=== PATIENT | female | born 1950 | race Two or more races ===

== ENCOUNTER 2018-12-07 20:11 | Inpatient (IN) | payer MEDICARE, MEDICAID ==
--- NOTE | 2018-12-07 20:21 | ED Physician Chart ---
ED Chief Complaint/HPI - Patient Information Date Seen:: 12/07/18 Time Seen:: 20:16 Chief Complaint:: chest pain History of Present Illness:: this is a 68 yr old female who is concerned about her chest pain with congestion , sputum production, fever and chest pain. she had an x-ray done she had a chest x-ray earlier today with finding consistent with bilateral effusions. Allergies:: Allergies Allergy/AdvReac Type Severity Reaction Status Date / Time No Known Allergies Allergy Verified 12/07/18 20:14 Historian:: Patient, Medical Records Review:: Nurse's Note Reviewed, Transfer documents Reviewed ED Review of Systems - Review of Systems General/Constitutional: Fever, No chills, No weight loss, No weakness, No diaphoresis, No edema, No loss of appetite Skin: No skin lesions, No rash, No bruising Head: No headache, No light-headedness Eyes: No loss of vision, No pain, No diplopia ENT: No earache, No nasal drainage, No sore throat, No tinnitus Neck: No neck pain, No swelling, No thyromegaly, No stiffness, No mass noted Cardio Vascular: Chest pain, No palpitations, No PND, No orthopnea, No edema Pulmonary: No SOB, Cough, Sputum, No wheezing GI: Nausea, No vomiting, No diarrhea, No pain, No melena, No hematochezia, No constipation, No hematemesis G/U: No dysuria, No frequency, No hematuria Musculoskeletal: No bone or joint pain, No back pain, No muscle pain Endocrine: No polyuria, No polydipsia Psychiatric: No prior psych history, No depression, No anxiety, No suicidal ideation Hematopoietic: No bruising, No lymphadenopathy Allergic/Immuno: No urticaria, No angioedema Neurological: No syncope, No focal symptoms, No weakness, No paresthesia, No headache, No seizure, No dizziness, No confusion, No vertigo ED Past Medical History - Past Medical History Obtainable: Yes Past Medical History: HTN, DM, CHF, Asthma/COPD, Thyroid disorder, Other ( blindness, cirrhosis of the liver, ) Family History: None Social History: Non Smoker, No Alcohol, No Drug Use, Care Facility Surgical History: Hernia Family Medical History - Family Member Mother History Unknown: Yes ED Physical Exam - Physical Examination General/Constitutional: Awake, Well-developed, well-nourished, Alert, No distress, GCS 15, Non-toxic appearing, Ambulatory Head: Atraumatic Eyes: Lids, conjuctiva normal, PERRL, EOMI Other Eyes comments:: blindness Skin: Nl inspection, No rash, No skin lesions, No ecchymosis, Well hydrated, No lymphadenopathy ENMT: External ears, nose nl, Nasal exam nl, Lips, teeth, gums nl Neck: Nontender, Full ROM w/o pain, No JVD, No nuchal rigidity, No bruit, No mass, No stridor Respiratory: Nl effort/Exclusion, Clear to Auscultation, No Wheeze/Rhonchi/ Rales (bilateral rhonchi heard) Cardio Vascular: RRR, No murmur, gallop, rubs, NL S1 S2 GI: No tenderness/rebounding/guarding, No organomegaly, No hernia, Normal BS's, Nondistended, No mass/bruits, No McBurney tenderness : No CVA tenderness Extremities: No tenderness or effusion, Full ROM, normal strength in all extremities, No edema, Normal digits & nails Neuro/Psych: Alert/oriented, DTR's symmetric, Normal sensory exam, Normal motor strength, Judgement/insight normal, Mood normal, Normal gait, No focal deficits Misc: Normal back, No paraspinal tenderness ED Labs/Radiology/EKG Results - Lab Results Results: Laboratory Results - last 24 hr 12/07/18 12/07/18 12/07/18 20:37 20:37 20:37 WBC 5.5 RBC 2.19 L Hgb 7.8 L* Hct 23.3 L MCV 106.6 H MCH 35.8 H MCHC Differential 33.5 RDW 15.8 Plt Count 115 L MPV 10.4 Add Manual Diff YES Band Neutrophils % 0 Neutrophils (Manual) 71 Lymphocytes 15 L Monocytes 12 H Eosinophils 2 Basophils 0 PT 11.6 H INR 1.13 Sodium 140 Potassium Chloride 111 H Carbon Dioxide 27.4 Anion Gap 7.6 BUN 27 H Creatinine 1.2 Est GFR ( Amer) 57.1 Est GFR (Non-Af Amer) 47.2 BUN/Creatinine Ratio 22.5 Glucose 113 H Calcium 8.7 Total Bilirubin 0.9 AST 57 H ALT 39 Alkaline Phosphatase 185 H Troponin I Total Protein 5.8 L Albumin 2.5 L Globulin 3.3 Albumin/Globulin Ratio 0.8 L 12/07/18 20:37 WBC RBC Hgb Hct MCV MCH MCHC Differential RDW Plt Count MPV Add Manual Diff Band Neutrophils % Neutrophils (Manual) Lymphocytes Monocytes Eosinophils Basophils PT INR Sodium Potassium Chloride Carbon Dioxide Anion Gap BUN Creatinine Est GFR ( Amer) Est GFR (Non-Af Amer) BUN/Creatinine Ratio Glucose Calcium Total Bilirubin AST ALT Alkaline Phosphatase Troponin I 0.03 Total Protein Albumin Globulin Albumin/Globulin Ratio - EKG Interpretations EKG Time:: 20:59 Rate & Rhythm: rate 85, sinus Oakley: right axis ED Assessment - Assessment General Assessment: bilateral pleural effusions. ED Septic Shock - . Is Septic Shock (SBP<90, OR Lactate>4 mmol\L) present?: No ED Reassessment (Disposition) - Reassessment Reassessment Condition:: Unchanged - Diagnosis Diagnosis:: bilateral pleural effusions anemia urinary tract infection - Patient Disposition Discharge/Transfer:: Acute Care w/in this hosp Admitted to:: Telemetry Admitting Medical Physician:: Timoteo Christian Condition at Disposition:: Improved
[2018-12-07 20:52] LABS: HEMATOCRIT 23.3 % (41.0-60); MEAN CORPUSCULAR HEMOGLOBIN 35.8 pg (27.0-31.0); MEAN CORPUSCULAR HGB CONC 33.5 pg (28.0-36.0); MEAN PLATELET VOLUME 10.4 fl; PLATELET COUNT 115 Th/cmm (150-400); RED BLOOD COUNT 2.19 Mil/cmm (3.80-5.20); RED CELL DISTRIBUTION WIDTH 15.8 % (11.5-20.0); WHITE BLOOD COUNT 5.5 Th/cmm (4.8-10.8)
[2018-12-07 20:54] LABS: HEMOGLOBIN 7.8 gm/dL (12-16); INR 1.13 (0.5-1.4); MEAN CELL VOLUME 106.6 fl (81-100); PROTHROMBIN TIME (TEST) 11.6 SECONDS (9.5-11.5)
[2018-12-07 21:00] LABS: ALB/GLOB RATIO 0.8 (1.0-1.8); ALBUMIN 2.5 gm/dL (3.7-5.3); ANION GAP 7.6 (7.0-16.0); BILIRUBIN,TOTAL 0.9 mg/dL (0.3-1.0); CALCIUM SERUM 8.7 mg/dL (8.6-10.3); CARBON DIOXIDE 27.4 mEq/L (21.0-31.0); CREATININE - SERUM 1.2 mg/dL (0.6-1.2); GFR AFRICAN-AMERICAN 57.1 ml/min (>90); GFR NON AFRICAN-AMERICAN 47.2 ml/min; TOTAL PROTEIN,SERUM 5.8 gm/dL (6.0-8.3)
[2018-12-07 21:19] LABS: BAND NEUTROPHILE 0 % (0-10); BASOPHIL 0 % (0-3); EOSINOPHIL 2 % (0-5); LYMPHOCYTE 15 % (20-50); MONOCYTE 12 % (2-10); NEUTROPHILS 71 % (40-80)
[2018-12-07 21:35] LABS: URINE SOURCE CLEAN C
[2018-12-07 21:37] LABS: URINE BILIRUBIN NEGATIVE (NEGATIVE); URINE BLOOD TRACE (NEGATIVE); URINE GLUCOSE (UA) NEGATIVE (NEGATIVE); URINE KETONE NEGATIVE (NEGATIVE); URINE LEUKOCYTE ESTERASE SMALL (NEGATIVE); URINE MICROSCOPIC INDICATED? YES; URINE NITRATE NEGATIVE (NEGATIVE); URINE PROTEIN NEGATIVE (NEGATIVE); URINE UROBILINOGEN 0.2 E.U./dL (0.2 - 1.0)
[2018-12-07] MEDS ORDERED: Sodium Chloride 0.9% 1,000 ML IV ONE (21:37)
[2018-12-07] MEDS ORDERED: Dextrose 50% 50 mL Abboject IVP STA (21:38)
[2018-12-07] MEDS ORDERED: INSULIN HUMAN REGULAR 100 UNITS/ML UNIT SUBQ ONE (21:39)
[2018-12-07 21:47] LABS: URINE COLOR YELLOW
[2018-12-07 21:48] LABS: URINE CLARITY HAZY (CLEAR); URINE RBC 0-2 /hpf (0-5)
[2018-12-07 21:49] LABS: URINE BACTERIA MODERATE /hpf (NONE SEEN); URINE EPITHELIAL CELLS FEW /lpf (FEW)
[2018-12-07] MEDS ORDERED: Dextrose 50% 50 mL Abboject IVP ONE (21:52)
[2018-12-07] MEDS ORDERED: INSULIN HUMAN REGULAR 100 UNITS/ML UNIT ONE (21:54)
[2018-12-07 23:24] LABS: INF A SCREEN NEG FOR INF A; INF B SCREEN NEG FOR INF B
[2018-12-08] MEDS ORDERED: Magnesium Hydroxide (MOM) 30 mL UDC PO PRN (02:59)
[2018-12-08] MEDS ORDERED: Fleet Enema 135 mL RC PRN (02:59)
[2018-12-08 05:23] LABS: MEAN CORPUSCULAR HGB CONC 32.6 pg (28.0-36.0); MEAN PLATELET VOLUME 9.7 fl; PLATELET COUNT 116 Th/cmm (150-400); RED BLOOD COUNT 2.05 Mil/cmm (3.80-5.20); RED CELL DISTRIBUTION WIDTH 16.5 % (11.5-20.0); WHITE BLOOD COUNT 5.4 Th/cmm (4.8-10.8)
[2018-12-08 05:28] LABS: ALB/GLOB RATIO 0.8 (1.0-1.8); ALBUMIN 2.3 gm/dL (3.7-5.3); ALKALINE PHOSPHATASE 158 U/L (34-104); ANION GAP 7.9 (7.0-16.0); BILIRUBIN,TOTAL 0.9 mg/dL (0.3-1.0); BUN - UREA NITROGEN 22 mg/dL (7-25); CALCIUM SERUM 8.3 mg/dL (8.6-10.3); CARBON DIOXIDE 27.6 mEq/L (21.0-31.0); CHLORIDE 114 mEq/L (98-107); GFR AFRICAN-AMERICAN > 60.0 ml/min (>90); GFR NON AFRICAN-AMERICAN 58.3 ml/min; GLUCOSE 91 mg/dL (70-105); POTASSIUM SERUM 5.5 mEq/L (3.5-5.1); SGOT 50 U/L (13-39); SGPT/ALT 36 U/L (7-52); SODIUM SERUM 144 mEq/L (136-145); TOTAL PROTEIN,SERUM 5.3 gm/dL (6.0-8.3)
[2018-12-08 05:36] LABS: HEMOGLOBIN 7.2 gm/dL (12-16)
[2018-12-08] MEDS: Levothyroxine 0.1 Mg Tab PO SCH (06:33)
[2018-12-08] MEDS: Pantoprazole 40 mg EC Tab PO SCH (06:33)
[2018-12-08 06:38] LABS: EOSINOPHIL 4 % (0-5); LYMPHOCYTE 7 % (20-50); MONOCYTE 11 % (2-10); NEUTROPHILS 78 % (40-80); PLATELET ESTIMATE ADEQUATE (NORMAL)
[2018-12-08 06:39] LABS: MEAN CELL VOLUME 107.5 fl (81-100)
[2018-12-08] MEDS: INSULIN HUMAN REGULAR 100 UNITS/ML UNIT SUBQ SCH ×3 (07:18→18:16)
--- NOTE | 2018-12-08 09:30 | Diagnostic Imaging Report ---
CHEST X-RAY: AP view INDICATION: Pleural effusion COMPARISON: None FINDINGS: Findings of CHF are seen with bilateral effusions and infiltrates. Cardiomegaly is noted. Degenerative changes of the spine are noted. IMPRESSION: CHF with bilateral pleural effusions and infiltrates. Cardiomegaly and atherosclerotic vascular disease.
[2018-12-08] MEDS: Ferrous Sulfate 325 MG TAB PO SCH (09:54)
[2018-12-08] MEDS: Multivitamin w/ Minerals Tab PO SCH (09:55)
[2018-12-08] MEDS: Lactulose 10 Gm/15 mL 30mL UDC PO SCH ×5 (09:55→20:50)
[2018-12-08] MEDS: Aspirin 81mg Chewable Tab PO SCH (09:55)
[2018-12-08] MEDS: Polyvinyl Alcohol Ophth Soln 15 mL Bottle EACH EYE SCH ×2 (10:01→16:53)
[2018-12-08] MEDS: cefTRIAXone 1 GM in Sodium Chloride 0.9% 50 ML IV SCH ×2 (13:58→20:45)
[2018-12-08] MEDS ORDERED: DEXTROSE 5% IV SCH (21:00)
[2018-12-08] MEDS ORDERED: CEFUROXIME SODIUM IV SCH (21:00)
[2018-12-08] MEDS: INSULIN ASPART SLIDING SCALE 100 UNITS/ML UNIT SUBQ SCH (21:51)
[2018-12-08 23:52] LABS: RBC RETICULOCYTE COUNT 2.35 Mil/cmm
[2018-12-08 23:53] LABS: ABSOLUTE RETICULOCYTE 126.9 Th/cmm; HEMATOCRIT 25.1 % (37.0-47.0); RETICULOCYTES % COUNTED 5.4 % (0.5-1.5)
--- NOTE | 2018-12-09 01:06 | Infectious Disease Prog Note ---
Infectious Disease Subjective - Review of Systems Service Date: 12/08/18 Subjective: Patient had low hemoglobin, 7.2 and HCT 22, so One unit of blood transfusion given. No fever. Infectious Disease Objective - Results Result Diagrams: 12/08/18 17:45 12/08/18 05:05 Recent Labs: Laboratory Last Values WBC 5.4 Th/cmm (4.8-10.8) 12/08/18 05:05 RBC 2.05 Mil/cmm (3.80-5.20) L 12/08/18 05:05 Hgb 7.2 gm/dL (12-16) L* 12/08/18 05:05 Hct 25.1 % (37.0-47.0) L 12/08/18 17:45 MCV 107.5 fl (81-100) H 12/08/18 05:05 MCH 35.0 pg (27.0-31.0) H 12/08/18 05:05 MCHC Differential 32.6 pg (28.0-36.0) 12/08/18 05:05 RDW 16.5 % (11.5-20.0) 12/08/18 05:05 Plt Count 116 Th/cmm (150-400) L 12/08/18 05:05 MPV 9.7 fl 12/08/18 05:05 Add Manual Diff YES 12/08/18 05:05 Band Neutrophils % 0 % (0-10) 12/07/18 20:37 Neutrophils (Manual) 78 % (40-80) 12/08/18 05:05 Lymphocytes 7 % (20-50) L 12/08/18 05:05 Monocytes 11 % (2-10) H 12/08/18 05:05 Eosinophils 4 % (0-5) 12/08/18 05:05 Basophils 0 % (0-3) 12/07/18 20:37 Platelet Estimate ADEQUATE (NORMAL) 12/08/18 05:05 Macrocytosis 1+ 12/08/18 05:05 Total Retics Counted 5.4 % (0.5-1.5) H 12/08/18 17:45 Absolute Retic 126.9 Th/cmm 12/08/18 17:45 Corrected Retic Count 3.0 % (0.5-1.5) H 12/08/18 17:45 PT 11.6 SECONDS (9.5-11.5) H 12/07/18 20:37 INR 1.13 (0.5-1.4) 12/07/18 20:37 Sodium 144 mEq/L (136-145) 12/08/18 05:05 Potassium 5.5 mEq/L (3.5-5.1) H 12/08/18 05:05 Chloride 114 mEq/L (98-107) H 12/08/18 05:05 Carbon Dioxide 27.6 mEq/L (21.0-31.0) 12/08/18 05:05 Anion Gap 7.9 (7.0-16.0) 12/08/18 05:05 BUN 22 mg/dL (7-25) 12/08/18 05:05 Creatinine 1.0 mg/dL (0.6-1.2) 12/08/18 05:05 Est GFR ( Amer) > 60.0 ml/min (>90) 12/08/18 05:05 Est GFR (Non-Af Amer) 58.3 ml/min 12/08/18 05:05 BUN/Creatinine Ratio 22.0 12/08/18 05:05 Glucose 91 mg/dL (70-105) 12/08/18 05:05 POC Glucose 243 MG/DL (70 - 105) H 12/08/18 20:26 Calcium 8.3 mg/dL (8.6-10.3) L 12/08/18 05:05 Total Bilirubin 0.9 mg/dL (0.3-1.0) 12/08/18 05:05 AST 50 U/L (13-39) H 12/08/18 05:05 ALT 36 U/L (7-52) 12/08/18 05:05 Alkaline Phosphatase 158 U/L (34-104) H 12/08/18 05:05 Ammonia 68 umol/L (16-53) H 12/08/18 05:05 Troponin I 0.03 ng/mL (0.01-0.05) 12/07/18 20:37 B-Natriuretic Peptide 306.0 pg/mL (5.0-100.0) H 12/07/18 22:10 Total Protein 5.3 gm/dL (6.0-8.3) L 12/08/18 05:05 Albumin 2.3 gm/dL (3.7-5.3) L 12/08/18 05:05 Globulin 3.0 gm/dL 12/08/18 05:05 Albumin/Globulin Ratio 0.8 (1.0-1.8) L 12/08/18 05:05 LDL Cholesterol Direct 72 mg/dL (75-193) L 12/08/18 17:45 Urine Source CLEAN C 12/07/18 21:10 Urine Color YELLOW 12/07/18 21:10 Urine Clarity HAZY (CLEAR) 12/07/18 21:10 Urine pH 6.0 (4.6 - 8.0) 12/07/18 21:10 Ur Specific [place] 1.025 (1.005-1.030) 12/07/18 21:10 Urine Protein NEGATIVE mg/dL (NEGATIVE) 12/07/18 21:10 Urine Glucose (UA) NEGATIVE mg/dL (NEGATIVE) 12/07/18 21:10 Urine Ketones NEGATIVE mg/dL (NEGATIVE) 12/07/18 21:10 Urine Blood TRACE (NEGATIVE) 12/07/18 21:10 Urine Nitrate NEGATIVE (NEGATIVE) 12/07/18 21:10 Urine Bilirubin NEGATIVE (NEGATIVE) 12/07/18 21:10 Urine Urobilinogen 0.2 E.U./dL (0.2 - 1.0) 12/07/18 21:10 Ur Leukocyte Esterase SMALL (NEGATIVE) H 12/07/18 21:10 Urine RBC 0-2 /hpf (0-5) 12/07/18 21:10 Urine WBC 10-25 /hpf (0-5) H 12/07/18 21:10 Ur Epithelial Cells FEW /lpf (FEW) 12/07/18 21:10 Urine Bacteria MODERATE /hpf (NONE SEEN) H 12/07/18 21:10 Influenza A (Rapid) NEG FOR INF A 12/07/18 22:35 Influenza B (Rapid) NEG FOR INF B 12/07/18 22:35 Blood Type O POSITIVE 12/08/18 17:45 Antibody Screen NEGATIVE 12/08/18 17:45 Crossmatch See Detail 12/08/18 17:45 - Physical Exam Vitals and I&O: Vital Signs Temp 98.9 F 12/08/18 20:00 Pulse 70 12/08/18 20:00 Resp 19 12/08/18 20:00 BP 166/50 12/08/18 20:00 Pulse Ox 100 12/08/18 20:00 Intake & Output 12/08/18 12/08/18 12/09/18 06:59 18:59 06:59 Intake Total 50 Balance 50 Weight (lbs) 50.377 kg Intake: Intake, IV Amount 50 [id number] 1 gm In 50 Sodium Chloride 0.9% 50 ml @ 100 mls/hr IV Q12HR [facility] Rx#:[id number] Other: # Voids 2 # Bowel Movements 0 Stool Characteristics Soft Black Weight Source Bedscale Active Medications: Current Medications Acetaminophen (Tylenol) 650 mg PO Q4HR PRN PRN Reason: Pain or Fever >101 Stop: 02/06/19 02:58 Artificial Tears (Artificial Tears Ophth Soln) 1 drop EACH EYE BID [facility] Stop: 02/06/19 08:59 Last Admin: 12/08/18 16:53 Dose: 1 drop Aspirin (Aspirin Chewable) 81 mg PO DAILY [facility] Stop: 02/06/19 08:59 Last Admin: 12/08/18 09:55 Dose: 81 mg Bisacodyl (Dulcolax 10 Mg Supp) 10 mg RC DAILY PRN PRN Reason: Constipation Stop: 02/06/19 02:58 Brimonidine Tartrate (Alphagan 0.2% Ophth Soln) 1 drop RIGHT EYE BID [facility] Stop: 02/06/19 08:59 Last Admin: 12/08/18 16:53 Dose: 1 drop Docusate Sodium (Colace) 100 mg PO BID [facility] Stop: 02/06/19 08:59 Last Admin: 12/08/18 16:54 Dose: 100 mg Ferrous Sulfate (Iron) 325 mg PO DAILY [facility] Stop: 02/06/19 08:59 Last Admin: 12/08/18 09:54 Dose: 325 mg Folic Acid (Folate) 2 mg PO DAILY [facility] Stop: 02/06/19 08:59 Last Admin: 12/08/18 09:55 Dose: 2 mg Furosemide (Lasix) 20 mg PO DAILY [facility] Stop: 02/07/19 08:59 Glimepiride (Amaryl) 8 mg PO DAILY [facility] Stop: 02/06/19 08:59 Last Admin: 12/08/18 09:57 Dose: 8 mg Ceftriaxone Sodium 1 gm/ (Sodium Chloride) 50 mls @ 100 mls/hr IV Q12HR [facility] Stop: 02/06/19 13:59 Last Admin: 12/08/18 20:45 Dose: 100 mls/hr Insulin Aspart (Novolog Insulin Sliding Scale) 0 units SUBQ ACHS [facility]; Protocol Stop: 02/06/19 20:59 Last Admin: 12/08/18 21:51 Dose: Not Given Lactulose (Cephulac) 40 gm PO QID [facility] Stop: 02/06/19 08:59 Last Admin: 12/08/18 20:50 Dose: 40 gm Latanoprost (Xalatan 0.005% Oph Soln) 1 drop EACH EYE HS [facility] Stop: 02/06/19 20:59 Last Admin: 12/08/18 20:46 Dose: 1 drop Levothyroxine Sodium (Synthroid) 0.2 mg PO QDAC [facility] Stop: 02/06/19 07:29 Last Admin: 12/08/18 06:33 Dose: 0.2 mg Losartan Potassium (Cozaar) 25 mg PO DAILY [facility] Stop: 02/06/19 08:59 Last Admin: 12/08/18 09:54 Dose: 25 mg Magnesium Hydroxide (Milk Of Magnesia) 30 ml PO DAILY PRN PRN Reason: Constipation Stop: 02/06/19 02:58 Metoprolol Tartrate (Lopressor) 25 mg PO BID [facility] Stop: 02/06/19 08:59 Last Admin: 12/08/18 16:54 Dose: 25 mg Ondansetron HCl (Zofran Odt) 4 mg PO Q8H [facility] Stop: 02/06/19 02:59 Last Admin: 12/08/18 18:09 Dose: 4 mg Pantoprazole Sodium (Protonix) 40 mg PO QDAC [facility] Stop: 02/06/19 07:29 Last Admin: 12/08/18 06:33 Dose: 40 mg Rifaximin (Xifaxan) 550 mg PO BID [facility] Stop: 02/06/19 08:59 Last Admin: 12/08/18 16:55 Dose: 550 mg Sitagliptin Phosphate (Januvia) 100 mg PO QDAC [facility] Stop: 02/06/19 07:29 Last Admin: 12/08/18 07:19 Dose: Not Given Sodium Phosphate (Fleet Enema) 135 ml RC DAILY PRN PRN Reason: Constipation Stop: 02/06/19 02:58 Spironolactone (Aldactone) 50 mg PO BID [facility] Stop: 02/07/19 08:59 General: no acute distress, cachectic HEENT: atraumatic, normocephalic, PERRLA, EOMI Neck: supple, no thyromegaly Cardiovascular: S1S2, regular Lungs: clear to auscultation bilaterally, clear to percussion, crackles, other ( decreased breath sounds.) Abdomen: soft, bowel sounds, no tender, no distended, no mass Extremities: no cyanosis, no clubbing, no edema Neurological: awake, alert, oriented Skin: intact Infectious Disease Assmt/Plan - Assessment Assessment: 1. Anemia likely 2/2 cirrhosis. r/o gi bleed/ 2. Dehydration. 3. Liver cirrhosis. 4. Metabolic, hepatic encephalopathy. 5. Pneumonia, bilateral pleural effusion. 6. CHF. 7. Right eye blindness. - Plan Plan: Will continue same treatment. Consultation by Dr Colleen Christian, Dr bartlett appreciated. GI consult. Anemia w/u. One unit of PRBC transfused. stool for occult blood.
--- NOTE | 2018-12-09 02:32 | Consultation ---
DATE OF CONSULTATION: 12/08/2018 PATIENT OF: Dr. Catie Christian. HISTORY OF PRESENT ILLNESS: This is a 68-year-old female patient who was brought to the Emergency Room with shortness of breath. The patient was found to have congestive heart failure, bilateral pleural effusion, possible pneumonia, urinary tract infection and hence the patient is admitted. PAST MEDICAL HISTORY: Hypothyroid, ascites, cirrhosis of liver, diabetes mellitus type 2, diabetic CKD stage 2, insulin-dependent diabetes mellitus, right eye blindness, glaucoma, iron-deficiency anemia, thrombocytopenia, splenomegaly, ascites. FAMILY HISTORY: Unremarkable. SOCIAL HISTORY: No history of smoking, alcohol abuse at the present time. ALLERGIES: No known allergies. PHYSICAL EXAMINATION: VITAL SIGNS: Blood pressure 114/80, pulse 70, respirations 20, temperature 98. HEAD: Normocephalic. No lumps or bumps. EYES: Pupils equal, reactive to light. Fundi showing AV nicking, sclerae white, conjunctivae pink. NECK: Carotid 2+. Normal upstroke. JVD 10 cm above sternal angle. Thyroid not palpable. Lymph nodes not palpable. CHEST: Shows increased AP diameter. No kyphosis, scoliosis. LUNGS: Bilateral rales. Decreased breath sounds both the bases. HEART: PMI sixth intercostal space with lateral to midclavicular line. S1, S2, S3, S4, soft systolic murmur. ABDOMEN: Soft, slight ascites. EXTREMITIES: No pedal edema. CLINICAL IMPRESSION: Pneumonia, bilateral pleural effusion, mild congestive heart failure, hypothyroid, ascites, cirrhosis of liver, diabetes mellitus type 2, hyperkalemia, insulin-dependent diabetes mellitus, right eye blindness, iron-deficiency anemia, glaucoma, thrombocytopenia. PLAN: The patient to start on IV antibiotics, Lasix. Echocardiogram. JOB# [id number]
[2018-12-09 05:11] LABS: % LYMPHOCYTES 11.1 % (20.0-50.0); HEMATOCRIT 30.4 % (41.0-60); HEMOGLOBIN 10.1 gm/dL (12-16); MONOCYTE ABSOLUTE 0.6 Th/cmm (0.3-1.0)
[2018-12-09 05:31] LABS: % BASOPHILS 0.1 % (0.0-2.0); % EOSINOPHILS 1.1 % (0.0-5.0); % MONOCYTES 10.6 % (2.0-10.0); % NEUTROPHILS 77.1 % (40.0-80.0); EOSINOPHILE ABSOLUTE 0.1 Th/cmm (0.1-0.4); LYMPHOCYTE ABSOLUTE 0.7 Th/cmm (1.5-3.0); MEAN CELL VOLUME 98.3 fl (81-100); MEAN CORPUSCULAR HEMOGLOBIN 32.5 pg (27.0-31.0); MEAN CORPUSCULAR HGB CONC 33.1 pg (28.0-36.0); MEAN PLATELET VOLUME 10.5 fl; NEUTROPHILE ABSOLUTE 4.5 Th/cmm (1.8-8.0); PLATELET COUNT 122 Th/cmm (150-400); RED CELL DISTRIBUTION WIDTH 23.1 % (11.5-20.0); WHITE BLOOD COUNT 5.9 Th/cmm (4.8-10.8)
[2018-12-09 05:47] LABS: ALB/GLOB RATIO 0.8 (1.0-1.8); ALBUMIN 2.5 gm/dL (3.7-5.3); ALKALINE PHOSPHATASE 165 U/L (34-104); ANION GAP 8.1 (7.0-16.0); BILIRUBIN,TOTAL 1.1 mg/dL (0.3-1.0); BUN - UREA NITROGEN 24 mg/dL (7-25); CALCIUM SERUM 8.3 mg/dL (8.6-10.3); CARBON DIOXIDE 28.3 mEq/L (21.0-31.0); CHLORIDE 117 mEq/L (98-107); GFR AFRICAN-AMERICAN > 60.0 ml/min (>90); GFR NON AFRICAN-AMERICAN 58.3 ml/min; POTASSIUM SERUM 5.4 mEq/L (3.5-5.1); SGOT 59 U/L (13-39); SGPT/ALT 41 U/L (7-52); SODIUM SERUM 148 mEq/L (136-145); TOTAL PROTEIN,SERUM 5.8 gm/dL (6.0-8.3)
[2018-12-09 06:10] LABS: GLUCOSE 177 mg/dL (70-105)
[2018-12-09] MEDS: INSULIN ASPART SLIDING SCALE 100 UNITS/ML UNIT SUBQ SCH ×4 (06:40→21:40)
[2018-12-09] MEDS: Levothyroxine 0.1 Mg Tab PO SCH (06:44)
[2018-12-09] MEDS: Pantoprazole 40 mg EC Tab PO SCH (06:44)
[2018-12-09] MEDS: Lactulose 10 Gm/15 mL 30mL UDC PO SCH ×4 (09:58→21:02)
[2018-12-09] MEDS: Aspirin 81mg Chewable Tab PO SCH (10:01)
[2018-12-09] MEDS: Multivitamin w/ Minerals Tab PO SCH (10:01)
[2018-12-09] MEDS: Ferrous Sulfate 325 MG TAB PO SCH (10:04)
[2018-12-09] MEDS: cefTRIAXone 1 GM in Sodium Chloride 0.9% 50 ML IV SCH ×2 (10:06→21:07)
[2018-12-09] MEDS: Polyvinyl Alcohol Ophth Soln 15 mL Bottle EACH EYE SCH ×2 (10:06→18:42)
--- NOTE | 2018-12-09 10:06 | Diagnostic Imaging Report ---
CHEST X-RAY: AP view INDICATION: Shortness of breath COMPARISON: 12/08/2018 FINDINGS: Bilateral pleural effusions are seen with bilateral infiltrates. Cardiomegaly is noted. IMPRESSION: CHF with bilateral pleural effusions infiltrates overall no significant change.
--- NOTE | 2018-12-09 11:15 | History & Physical ---
ADMIT DATE: 12/07/2018 CHIEF COMPLAINT: ____, chest pain. HISTORY OF PRESENT ILLNESS: The patient is a 68-year-old female with a past medical history of cirrhosis secondary to alcohol abuse, hypertension, diabetes mellitus type 2, CHF, asthma, COPD, thyroid disorder, right eye blindness, anemia, hepatic encephalopathy, brought to the ER for congestion and sputum production. The patient also started to have fever and chest pain. Chest x-ray showed bilateral effusions. On initial evaluation, the patient's temperature was 99.3 degrees Fahrenheit, WBC count was 5500 and hemoglobin 7.8. So, the patient was admitted with a diagnosis of anemia, altered mental status, and bilateral pleural effusion. The patient also has had evidence of UTI. PAST MEDICAL HISTORY: Includes diabetes mellitus type 2, hypertension, right eye blindness, asthma, COPD, CHF, thyroid disorder, and alcoholic cirrhosis. FAMILY HISTORY: Not available. SOCIAL HISTORY: The patient lives at nursing facility. Currently no smoking, no alcohol, no drug use, but has past history of alcohol abuse. PAST SURGICAL HISTORY: Hernia repair. REVIEW OF SYSTEMS: GENERAL: The patient is a poor historian. The patient had a fever at nursing facility. No chills, no weight loss, no weakness, no diaphoresis, no edema, there is some loss of appetite. HEENT: No diplopia, no photophobia. Right eye blindness. PULMONARY: No cough, no shortness of breath, but some congestion. CARDIOVASCULAR: The patient has no chest pain or palpitation. GENITOURINARY: No dysuria, no hematuria. MUSCULOSKELETAL: No muscle pain, no joint pain. CENTRAL NERVOUS SYSTEM: The patient is mildly confused, but otherwise no focal weakness. PHYSICAL EXAMINATION: VITAL SIGNS: Shows temperature is 97.8 degrees Fahrenheit, pulse 85, respirations 16, blood pressure 180/64. GENERAL: The patient is comfortable, lying in the bed, cachectic, not in acute distress. HEENT: Head is normocephalic, atraumatic. Oral cavity moist, pink tongue. EYES: Pallor is present, no icterus. Pupils PERRLA, EOMI. NECK: Supple, no JVD, no carotid bruit. Trachea in midline. CHEST: Decreased breath sounds at the bases with some crackles. HEART: S1, S2 within normal limits. Regular rhythm. No murmur, no gallop. ABDOMEN: Soft, nontender, nondistended. Bowel sounds present. EXTREMITIES: No cyanosis, no clubbing, no edema. NEUROLOGIC: Alert, awake and arousable. LABORATORY DATA: Current lab shows WBC count is 5500, hemoglobin 7.8, hematocrit 23.3, platelets are 115,000, neutrophils 71%. Sodium 140, potassium 6.0, chloride is 111, bicarbonate is 27.4, BUN is 27, creatinine 1.2, glucose is 113, AST 57, ALT is 39, alkaline phosphatase 185, total bilirubin 0.9. Urinalysis shows negative nitrite, small leukoesterase, wbc 10-25, and moderate bacteria. Influenza A and B screen was done is negative. INR 1.13. IMPRESSION: 1. Severe anemia. 2. Bilateral pleural effusion may be secondary to congestive heart failure versus pneumonia. 3. Urinary tract infection. 4. Hyperkalemia. 5. Liver cirrhosis, alcoholic cirrhosis. 6. Dehydration. 7. Metabolic hepatic encephalopathy. 8. Congestive heart failure. 9. Pneumonia. 10. Right eye blindness. PLAN: We will continue her medications. Consult Dr. Matthew Christian for the suspected congestive heart failure and Dr. Gama for Pulmonary consultation for bilateral pleural effusion. Monitor CBC and BMP in the morning. Depending on that labs we will take further decision. Meanwhile, give IV fluid. Hypertension, we will give metoprolol 25 mg p.o. twice a day and Rocephin 1 g IV, given in the ER. JOB# [id number]
--- NOTE | 2018-12-09 11:17 | General Progress Note ---
Subjective - Review of Systems Service Date: 12/09/18 Subjective: Patient has less shortness of breath minimal cough Objective - Results Result Diagrams: 12/09/18 04:50 12/09/18 04:50 Recent Labs: Laboratory Last Values WBC 5.9 Th/cmm (4.8-10.8) 12/09/18 04:50 RBC 3.10 Mil/cmm (3.80-5.20) L 12/09/18 04:50 Hgb 10.1 gm/dL (12-16) L 12/09/18 04:50 Hct 30.4 % (41.0-60) L D 12/09/18 04:50 MCV 98.3 fl (81-100) 12/09/18 04:50 MCH 32.5 pg (27.0-31.0) H 12/09/18 04:50 MCHC Differential 33.1 pg (28.0-36.0) 12/09/18 04:50 RDW 23.1 % (11.5-20.0) H 12/09/18 04:50 Plt Count 122 Th/cmm (150-400) L 12/09/18 04:50 MPV 10.5 fl 12/09/18 04:50 Add Manual Diff YES 12/08/18 05:05 Neutrophils % 77.1 % (40.0-80.0) 12/09/18 04:50 Band Neutrophils % 0 % (0-10) 12/07/18 20:37 Lymphocytes % 11.1 % (20.0-50.0) L 12/09/18 04:50 Monocytes % 10.6 % (2.0-10.0) H 12/09/18 04:50 Eosinophils % 1.1 % (0.0-5.0) 12/09/18 04:50 Basophils % 0.1 % (0.0-2.0) 12/09/18 04:50 Neutrophils (Manual) 78 % (40-80) 12/08/18 05:05 Lymphocytes 7 % (20-50) L 12/08/18 05:05 Monocytes 11 % (2-10) H 12/08/18 05:05 Eosinophils 4 % (0-5) 12/08/18 05:05 Basophils 0 % (0-3) 12/07/18 20:37 Platelet Estimate ADEQUATE (NORMAL) 12/08/18 05:05 Macrocytosis 1+ 12/08/18 05:05 Total Retics Counted 5.4 % (0.5-1.5) H 12/08/18 17:45 Absolute Retic 126.9 Th/cmm 12/08/18 17:45 Corrected Retic Count 3.0 % (0.5-1.5) H 12/08/18 17:45 PT 11.6 SECONDS (9.5-11.5) H 12/07/18 20:37 INR 1.13 (0.5-1.4) 12/07/18 20:37 Sodium 148 mEq/L (136-145) H 12/09/18 04:50 Potassium 5.4 mEq/L (3.5-5.1) H 12/09/18 04:50 Chloride 117 mEq/L (98-107) H 12/09/18 04:50 Carbon Dioxide 28.3 mEq/L (21.0-31.0) 12/09/18 04:50 Anion Gap 8.1 (7.0-16.0) 12/09/18 04:50 BUN 24 mg/dL (7-25) 12/09/18 04:50 Creatinine 1.0 mg/dL (0.6-1.2) 12/09/18 04:50 Est GFR ( Amer) > 60.0 ml/min (>90) 12/09/18 04:50 Est GFR (Non-Af Amer) 58.3 ml/min 12/09/18 04:50 BUN/Creatinine Ratio 24.0 12/09/18 04:50 Glucose 177 mg/dL (70-105) H D 12/09/18 04:50 POC Glucose 137 MG/DL (70 - 105) H 12/09/18 06:31 Calcium 8.3 mg/dL (8.6-10.3) L 12/09/18 04:50 Total Bilirubin 1.1 mg/dL (0.3-1.0) H 12/09/18 04:50 AST 59 U/L (13-39) H 12/09/18 04:50 ALT 41 U/L (7-52) 12/09/18 04:50 Alkaline Phosphatase 165 U/L (34-104) H 12/09/18 04:50 Ammonia 68 umol/L (16-53) H 12/08/18 05:05 Troponin I 0.03 ng/mL (0.01-0.05) 12/07/18 20:37 B-Natriuretic Peptide 306.0 pg/mL (5.0-100.0) H 12/07/18 22:10 Total Protein 5.8 gm/dL (6.0-8.3) L 12/09/18 04:50 Albumin 2.5 gm/dL (3.7-5.3) L 12/09/18 04:50 Globulin 3.3 gm/dL 12/09/18 04:50 Albumin/Globulin Ratio 0.8 (1.0-1.8) L 12/09/18 04:50 LDL Cholesterol Direct 72 mg/dL (75-193) L 12/08/18 17:45 Urine Source CLEAN C 12/07/18 21:10 Urine Color YELLOW 12/07/18 21:10 Urine Clarity HAZY (CLEAR) 12/07/18 21:10 Urine pH 6.0 (4.6 - 8.0) 12/07/18 21:10 Ur Specific [place] 1.025 (1.005-1.030) 12/07/18 21:10 Urine Protein NEGATIVE mg/dL (NEGATIVE) 12/07/18 21:10 Urine Glucose (UA) NEGATIVE mg/dL (NEGATIVE) 12/07/18 21:10 Urine Ketones NEGATIVE mg/dL (NEGATIVE) 12/07/18 21:10 Urine Blood TRACE (NEGATIVE) 12/07/18 21:10 Urine Nitrate NEGATIVE (NEGATIVE) 12/07/18 21:10 Urine Bilirubin NEGATIVE (NEGATIVE) 12/07/18 21:10 Urine Urobilinogen 0.2 E.U./dL (0.2 - 1.0) 12/07/18 21:10 Ur Leukocyte Esterase SMALL (NEGATIVE) H 12/07/18 21:10 Urine RBC 0-2 /hpf (0-5) 12/07/18 21:10 Urine WBC 10-25 /hpf (0-5) H 12/07/18 21:10 Ur Epithelial Cells FEW /lpf (FEW) 12/07/18 21:10 Urine Bacteria MODERATE /hpf (NONE SEEN) H 12/07/18 21:10 Stool Occult Blood NEGATIVE (NEGATIVE) 12/09/18 10:45 Influenza A (Rapid) NEG FOR INF A 12/07/18 22:35 Influenza B (Rapid) NEG FOR INF B 12/07/18 22:35 Blood Type O POSITIVE 12/08/18 17:45 Antibody Screen NEGATIVE 12/08/18 17:45 Crossmatch See Detail 12/08/18 17:45 - Physical Exam Vitals and I&O: Vital Signs Temp 97.4 F 12/09/18 07:47 Pulse 76 12/09/18 10:00 Resp 16 12/09/18 08:17 BP 160/56 12/09/18 10:01 Pulse Ox 99 12/09/18 08:17 Intake & Output 12/08/18 12/09/18 12/09/18 18:59 06:59 18:59 Intake Total 50 80 Balance 50 80 Weight (lbs) 50.377 kg Intake: Intake, IV Amount 50 50 cefTRIAXone 1 gm In 50 50 Sodium Chloride 0.9% 50 ml @ 100 mls/hr IV Q12HR [facility] Rx#:[id number] Oral 30 Other: # Voids 2 # Bowel Movements 2 Stool Characteristics Soft Liquid Black Brown Weight Source Bedscale Active Medications: Current Medications Acetaminophen (Tylenol) 650 mg PO Q4HR PRN PRN Reason: Pain or Fever >101 Stop: 02/06/19 02:58 Artificial Tears (Artificial Tears Ophth Soln) 1 drop EACH EYE BID [facility] Stop: 02/06/19 08:59 Last Admin: 12/09/18 10:06 Dose: 1 drop Aspirin (Aspirin Chewable) 81 mg PO DAILY [facility] Stop: 02/06/19 08:59 Last Admin: 12/09/18 10:01 Dose: 81 mg Bisacodyl (Dulcolax 10 Mg Supp) 10 mg RC DAILY PRN PRN Reason: Constipation Stop: 02/06/19 02:58 Brimonidine Tartrate (Alphagan 0.2% Ophth Soln) 1 drop RIGHT EYE BID [facility] Stop: 02/06/19 08:59 Last Admin: 12/09/18 10:05 Dose: 1 drop Docusate Sodium (Colace) 100 mg PO BID [facility] Stop: 02/06/19 08:59 Last Admin: 12/09/18 10:07 Dose: Not Given Ferrous Sulfate (Iron) 325 mg PO DAILY [facility] Stop: 02/06/19 08:59 Last Admin: 12/09/18 10:04 Dose: 325 mg Folic Acid (Folate) 2 mg PO DAILY [facility] Stop: 02/06/19 08:59 Last Admin: 12/09/18 09:59 Dose: 2 mg Furosemide (Lasix) 20 mg PO DAILY [facility] Stop: 02/07/19 08:59 Last Admin: 12/09/18 10:01 Dose: 20 mg Glimepiride (Amaryl) 8 mg PO DAILY [facility] Stop: 02/06/19 08:59 Last Admin: 12/09/18 10:00 Dose: 8 mg Ceftriaxone Sodium 1 gm/ (Sodium Chloride) 50 mls @ 100 mls/hr IV Q12HR [facility] Stop: 02/06/19 13:59 Last Admin: 12/09/18 10:06 Dose: 100 mls/hr Insulin Aspart (Novolog Insulin Sliding Scale) 0 units SUBQ ACHS [facility]; Protocol Stop: 02/06/19 20:59 Last Admin: 12/09/18 06:40 Dose: Not Given Lactulose (Cephulac) 40 gm PO QID [facility] Stop: 02/06/19 08:59 Last Admin: 12/09/18 09:58 Dose: 40 gm Latanoprost (Xalatan 0.005% Oph Soln) 1 drop EACH EYE HS [facility] Stop: 02/06/19 20:59 Last Admin: 12/08/18 20:46 Dose: 1 drop Levothyroxine Sodium (Synthroid) 0.2 mg PO QDAC [facility] Stop: 02/06/19 07:29 Last Admin: 12/09/18 06:44 Dose: 0.2 mg Losartan Potassium (Cozaar) 25 mg PO DAILY [facility] Stop: 02/06/19 08:59 Last Admin: 12/09/18 09:58 Dose: 25 mg Magnesium Hydroxide (Milk Of Magnesia) 30 ml PO DAILY PRN PRN Reason: Constipation Stop: 02/06/19 02:58 Metoprolol Tartrate (Lopressor) 25 mg PO BID [facility] Stop: 02/06/19 08:59 Last Admin: 12/09/18 10:00 Dose: 25 mg Ondansetron HCl (Zofran Odt) 4 mg PO Q8H [facility] Stop: 02/06/19 02:59 Last Admin: 12/09/18 03:49 Dose: Not Given Pantoprazole Sodium (Protonix) 40 mg PO QDAC [facility] Stop: 02/06/19 07:29 Last Admin: 12/09/18 06:44 Dose: 40 mg Rifaximin (Xifaxan) 550 mg PO BID [facility] Stop: 02/06/19 08:59 Last Admin: 12/09/18 09:59 Dose: 550 mg Sitagliptin Phosphate (Januvia) 100 mg PO QDAC [facility] Stop: 02/06/19 07:29 Last Admin: 12/09/18 10:06 Dose: 100 mg Sodium Phosphate (Fleet Enema) 135 ml RC DAILY PRN PRN Reason: Constipation Stop: 02/06/19 02:58 Spironolactone (Aldactone) 50 mg PO BID [facility] Stop: 02/07/19 08:59 Last Admin: 12/09/18 10:00 Dose: 50 mg General: Alert HEENT: Mucous membr. moist/pink Neck: Supple, JVD (flat), +2 carotid pulse wo bruit Cardiovascular: Regular rate, Normal S1, Normal S2, Systolic murmurs Lungs: Other (basilar rales) Abdomen: Bowel sounds, Soft Extremities: Pulses (normal) Neurological: Normal gait, Cranial nerves 3-12 NL, Reflexes 2+ Skin: no Rash, no Breakdown, no Significant lesion, no Other Assessment/Plan - Assessment Assessment: Pneumonia Bilateral pleural effusion Mild congestive heart failure diastolic dysfunction and acute Hypothyroid Sinusitis Cirrhosis of liver Diabetes mellitus type 2 insulin-dependent Hyperkalemia Right eye blindness Glaucoma Iron deficiency anemia Thrombocytopenia - Plan Plan: Continue antibiotics monitor diabetes Echocardiogram for congestive heart failure
--- NOTE | 2018-12-09 14:13 | Diagnostic Imaging Report ---
Ultrasound abdomen HISTORY: Hepatoma, ascites COMPARISON: None Technique: Sonography of the abdomen was performed in multiple planes. FINDINGS: Exam is limited due to body habitus. The liver demonstrates mildly heterogeneous echotexture and measures 10.7 cm. A TIPS shunt is noted. Assessment of the TIPS shunt is limited however the visualized portions appear patent. No discrete focal liver lesions. Small calcification is seen along the gallbladder wall. Gallbladder wall is borderline prominent. The Common bile measures 4 mm. No pericholecystic fluid. Evaluation of pancreas is limited due to bowel gas. The right kidney measures 9.0 x 6.2 cm and demonstrating mild heterogeneous echogenicity. No focal lesions. The left kidney measures 8.9 x 5.3 cm demonstrating mild heterogeneous echogenicity no evidence of focal lesions. There is fullness of the left renal collecting system. The spleen measures 7.2 cm. Atherosclerosis is noted. Bilateral pleural effusions are noted. IMPRESSION: No gross ascites identified. Bilateral pleural effusions are noted. Heterogeneous liver which may reflect underlying hepatocellular disease. No discrete focal lesions identified by ultrasound. Consider further assessment CT given patient's history. There appears to be a TIPS shunt. The visualized portions appear grossly patent. Suspect small gallstones. Evaluation gallbladder was limited due to underdistention, consider additional views after fasting. Fullness left renal collecting system without perla hydronephrosis. Mild heterogeneity of the renal cortices. Inflammatory process or medical renal disease cannot be excluded.
--- NOTE | 2018-12-09 14:24 | Consultation ---
DATE OF CONSULTATION: 12/09/2018 REFERRING PHYSICIAN: Dr. Timoteo Christian. REASON FOR CONSULTATION: Anemia. HISTORY OF PRESENT ILLNESS: The patient is a 68-year-old female who was admitted with chest pain and found to have pleural effusion, pneumonia, and congestive heart failure. The patient was also found to have persistently low hemoglobin. Therefore, I was asked to evaluate. PAST MEDICAL HISTORY: Liver cirrhosis, COPD, CHF, diabetes type 2, hypertension, blindness and thyroid disorder. SOCIAL HISTORY: No smoking or drinking. SURGICAL HISTORY: Hernia. MEDICATIONS: Reviewed including iron, folic acid, aspirin, and diabetes medications. PHYSICAL EXAMINATION: GENERAL: The patient is awake, conversing, and not in distress. VITAL SIGNS: Blood pressure stable, afebrile. HEENT: Atraumatic. No peripheral lymphadenopathy. CHEST: Bilateral rhonchi. ABDOMEN: Soft. No clinical ascites. EXTREMITIES: No edema. NERVOUS SYSTEM: Blind, moves four extremities. LABORATORY DATA: From admission, hemoglobin 7.8 with MCV of 106, white count 5.5, platelets 115. Liver functions, elevated AST. Albumin 2.5. Chest x-ray showed CHF with bilateral pleural effusion/infiltrates, unchanged from before. Creatinine 1, bilirubin 1.1, AST 59. Coagulation: INR normal. Current CBC: Hemoglobin 10.1 after transfusion, platelets still 122. ASSESSMENT: 1. Macrocytic anemia on presentation, most consistent with anemia of liver disease. 2. 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 PLAN: I will obtain abdominal ultrasound and obtain comprehensive anemia workup including iron studies, B12, and folate level and stool occult blood. Urinalysis from admission showed no evidence of microscopic hematuria. The patient was transfused 1 unit of packed red blood cells on 12/08/2018. Thank you, Dr. Christian, for the opportunity to participate in the care of this interesting case with you. JOB# [id number]
--- NOTE | 2018-12-09 17:19 | Consultation ---
DATE OF CONSULTATION: 12/08/[address] Timoteo Christian. Thank you very much for this consultation. HISTORY OF PRESENT ILLNESS: This is a 68-year-old female who was referred here from [facility] because of some shortness of breath, less oxygen, was found to have bilateral effusion. The patient has history of liver cirrhosis, CHF and is on Aldactone. The patient appears to be comfortable, a poor historian. SOCIAL HISTORY: Denies smoking or drinking, drug use. REVIEW OF SYSTEMS: GENERAL: Some weakness and fatigue. CARDIOVASCULAR: No chest pain or palpation. RESPIRATORY: Shortness of breath with exertion. GASTROINTESTINAL: No nausea, vomiting. PHYSICAL EXAMINATION: GENERAL: Awake, alert, not in acute distress. VITAL SIGNS: Temperature is 98.8, pulse 75, respiration 19, blood pressure 142/62, saturation 100%. HEENT: Atraumatic, normocephalic. Pupils react to light and accommodation. Ears, nose and throat normal. NECK: Supple. No JVD. CHEST: There are decreased breath sounds at bases. HEART: Regular rate and rhythm. ABDOMEN: Soft. EXTREMITIES: No edema. LABORATORY DATA: WBC is 5.4, hemoglobin 7.2, hematocrit 22.0, platelets 116. Sodium 144, potassium 5.5, BUN 22, creatinine 1.0. The chest x-ray, bilateral effusion. IMPRESSION: This is a 68-year-old female with liver cirrhosis, most likely the effusion is related to the above. PLAN: We will increase Aldactone to twice a day and add low dose Lasix and I will follow up chest x-ray and labs. We will follow the patient with you. Thank you very much for this consultation. JOB# [id number]
--- NOTE | 2018-12-09 22:15 | Consultation ---
DATE OF CONSULTATION: 12/09/2018 INPATIENT GASTROINTESTINAL CONSULTATION CONSULTING PHYSICIAN: Dr. Timoteo Christian. REASON FOR CONSULTATION: Liver cirrhosis and anemia. HISTORY OF PRESENT ILLNESS: The patient is a 68-year-old female with a past medical history significant for cirrhosis of the liver, possibly due to previous alcoholism, congestive heart failure, chronic kidney disease, type 2 diabetes, COPD, who was admitted to the hospital with chest pain and congestion. The patient was complaining of chest pain and shortness of breath, which is why she was brought into the ER. Evaluation thus far has revealed fluid in both sides of her lungs and she has been admitted for diuresis. Additionally, the admission labs noted a hemoglobin of 7.7 and a GI consult was placed for anemia and management of her liver cirrhosis. The patient herself is a poor historian, is not able to tell me much history at all. I did speak to the patient's daughter who notes that she had an EGD and colonoscopy about a year and a half ago at [facility], although she does not remember the results. There is no overt GI bleed at the current time. There is no melena, hematochezia, or hematemesis. PAST MEDICAL HISTORY: Congestive heart failure, COPD, liver cirrhosis, type 2 diabetes, chronic kidney disease. PAST SURGICAL HISTORY: Unknown. FAMILY HISTORY: Noncontributory. SOCIAL HISTORY: The patient does report having drink alcohol in her past. She is not currently a drinker. Denies illicit drug use. ALLERGIES: There are no known drug allergies. REVIEW OF SYSTEMS: A 12-point review of systems was performed with the patient and is negative other than the pertinent positives mentioned in history of present illness. CURRENT MEDICATIONS: Include Tylenol, artificial tears, aspirin, Dulcolax, ceftriaxone, Colace, folic acid, furosemide, Amaryl, insulin, lactulose, Synthroid, Cozaar, milk of magnesia, Lopressor, Zofran, Protonix, rifaximin, Januvia, Aldactone. PHYSICAL EXAMINATION: VITAL SIGNS: Blood pressure is 160/56, pulse of 65 beats per minute, temperature 97.4, oxygenation 100%. GENERAL: The patient is sitting upright in bed. She is eating breakfast. She is alert, oriented x 1-2, no apparent distress. HEAD, EYES, EARS, NOSE AND THROAT: Normocephalic, atraumatic appearing head. The pupils are equal and reactive to light. Extraocular muscles appear to be intact. Moist mucous membranes. NECK: Supple. No obvious JVD or thyromegaly. CHEST: There are crackles heard bilaterally. CARDIOVASCULAR: S1, S2 are present, regular rate and rhythm. ABDOMEN: Soft. There is mild distention. There is no guarding or rebound or tympanic percussion. There is a mild fluid wave. EXTREMITIES: 1+ pitting edema is noted bilaterally. Pulses are not present. SKIN: There is no obvious jaundice. LABORATORY DATA: White blood cell count 5.4, hemoglobin 7.2 on admission, this morning was 10.1, platelet count is 122. INR was measured at 1.1, sodium 148, BUN 24, creatinine 1.0. AST 59, ALT 41, total bilirubin 1.1. Ammonia level was 68 on admission. Occult stool for blood is negative. IMAGING: There is no official imaging that has been done as of yet. IMPRESSION: This is a 68-year-old female with history of liver cirrhosis, possibly due to alcoholism in the past, decompensated by hepatic encephalopathy and maybe ascites, chronic kidney disease, type 2 diabetes, congestive heart failure, COPD, admitted to the hospital with pulmonary congestion and anemia. 1. Anemia. 2. Congestive heart failure and chronic obstructive pulmonary disease exacerbation. 3. Liver cirrhosis, possibly alcoholism decompensated by ascites and hepatic encephalopathy. 4. Chronic kidney disease. DISCUSSION: In terms of the patient's anemia, I think this is a multifactorial process. Her MCV is elevated. Thus, I do not think she is losing blood actively from the GI tract and there is no melena or hematochezia history. She did have a recent EGD and colonoscopy within the past year and a half at [facility] and we will try to obtain the record. I do not feel that repeating endoscopy now is necessary unless there are overt GI bleeding, given she had this done recently and the stool occult blood is negative. We will get an abdominal ultrasound to examine the liver to look for any evidence of hepatoma as well as look for any evidence of ascites. Otherwise, she is already on lactulose and rifaximin to help with her hepatic encephalopathy and she is on diuresis. RECOMMENDATIONS: 1. Endoscopy is not planned given the above discussion. 2. Trend hemoglobin, transfuse to keep above 7. 3. Agree with lactulose and rifaximin. 4. Agree with diuresis. 5. We will order an abdominal ultrasound. 6. Paracentesis as needed if she becomes distended. 7. Avoid alcohol. Thank you for allowing me to participate in her care. Please call with any further questions. JOB# [id number]
--- NOTE | 2018-12-10 00:36 | Infectious Disease Prog Note ---
Infectious Disease Subjective - Review of Systems Service Date: 12/09/18 Subjective: Patient had low hemoglobin, 7.2 and HCT 22, so One unit of blood transfusion given. No fever. Infectious Disease Objective - Results Result Diagrams: 12/09/18 04:50 12/09/18 04:50 Recent Labs: Laboratory Last Values WBC 5.9 Th/cmm (4.8-10.8) 12/09/18 04:50 RBC 3.10 Mil/cmm (3.80-5.20) L 12/09/18 04:50 Hgb 10.1 gm/dL (12-16) L 12/09/18 04:50 Hct 30.4 % (41.0-60) L D 12/09/18 04:50 MCV 98.3 fl (81-100) 12/09/18 04:50 MCH 32.5 pg (27.0-31.0) H 12/09/18 04:50 MCHC Differential 33.1 pg (28.0-36.0) 12/09/18 04:50 RDW 23.1 % (11.5-20.0) H 12/09/18 04:50 Plt Count 122 Th/cmm (150-400) L 12/09/18 04:50 MPV 10.5 fl 12/09/18 04:50 Add Manual Diff YES 12/08/18 05:05 Neutrophils % 77.1 % (40.0-80.0) 12/09/18 04:50 Band Neutrophils % 0 % (0-10) 12/07/18 20:37 Lymphocytes % 11.1 % (20.0-50.0) L 12/09/18 04:50 Monocytes % 10.6 % (2.0-10.0) H 12/09/18 04:50 Eosinophils % 1.1 % (0.0-5.0) 12/09/18 04:50 Basophils % 0.1 % (0.0-2.0) 12/09/18 04:50 Neutrophils (Manual) 78 % (40-80) 12/08/18 05:05 Lymphocytes 7 % (20-50) L 12/08/18 05:05 Monocytes 11 % (2-10) H 12/08/18 05:05 Eosinophils 4 % (0-5) 12/08/18 05:05 Basophils 0 % (0-3) 12/07/18 20:37 Platelet Estimate ADEQUATE (NORMAL) 12/08/18 05:05 Macrocytosis 1+ 12/08/18 05:05 Total Retics Counted 5.4 % (0.5-1.5) H 12/08/18 17:45 Absolute Retic 126.9 Th/cmm 12/08/18 17:45 Corrected Retic Count 3.0 % (0.5-1.5) H 12/08/18 17:45 PT 11.6 SECONDS (9.5-11.5) H 12/07/18 20:37 INR 1.13 (0.5-1.4) 12/07/18 20:37 Sodium 148 mEq/L (136-145) H 12/09/18 04:50 Potassium 5.4 mEq/L (3.5-5.1) H 12/09/18 04:50 Chloride 117 mEq/L (98-107) H 12/09/18 04:50 Carbon Dioxide 28.3 mEq/L (21.0-31.0) 12/09/18 04:50 Anion Gap 8.1 (7.0-16.0) 12/09/18 04:50 BUN 24 mg/dL (7-25) 12/09/18 04:50 Creatinine 1.0 mg/dL (0.6-1.2) 12/09/18 04:50 Est GFR ( Amer) > 60.0 ml/min (>90) 12/09/18 04:50 Est GFR (Non-Af Amer) 58.3 ml/min 12/09/18 04:50 BUN/Creatinine Ratio 24.0 12/09/18 04:50 Glucose 177 mg/dL (70-105) H D 12/09/18 04:50 POC Glucose 208 MG/DL (70 - 105) H 12/09/18 20:42 Calcium 8.3 mg/dL (8.6-10.3) L 12/09/18 04:50 Total Bilirubin 1.1 mg/dL (0.3-1.0) H 12/09/18 04:50 AST 59 U/L (13-39) H 12/09/18 04:50 ALT 41 U/L (7-52) 12/09/18 04:50 Alkaline Phosphatase 165 U/L (34-104) H 12/09/18 04:50 Ammonia 68 umol/L (16-53) H 12/08/18 05:05 Troponin I 0.03 ng/mL (0.01-0.05) 12/07/18 20:37 B-Natriuretic Peptide 306.0 pg/mL (5.0-100.0) H 12/07/18 22:10 Total Protein 5.8 gm/dL (6.0-8.3) L 12/09/18 04:50 Albumin 2.5 gm/dL (3.7-5.3) L 12/09/18 04:50 Globulin 3.3 gm/dL 12/09/18 04:50 Albumin/Globulin Ratio 0.8 (1.0-1.8) L 12/09/18 04:50 LDL Cholesterol Direct 72 mg/dL (75-193) L 12/08/18 17:45 Urine Source CLEAN C 12/07/18 21:10 Urine Color YELLOW 12/07/18 21:10 Urine Clarity HAZY (CLEAR) 12/07/18 21:10 Urine pH 6.0 (4.6 - 8.0) 12/07/18 21:10 Ur Specific [place] 1.025 (1.005-1.030) 12/07/18 21:10 Urine Protein NEGATIVE mg/dL (NEGATIVE) 12/07/18 21:10 Urine Glucose (UA) NEGATIVE mg/dL (NEGATIVE) 12/07/18 21:10 Urine Ketones NEGATIVE mg/dL (NEGATIVE) 12/07/18 21:10 Urine Blood TRACE (NEGATIVE) 12/07/18 21:10 Urine Nitrate NEGATIVE (NEGATIVE) 12/07/18 21:10 Urine Bilirubin NEGATIVE (NEGATIVE) 12/07/18 21:10 Urine Urobilinogen 0.2 E.U./dL (0.2 - 1.0) 12/07/18 21:10 Ur Leukocyte Esterase SMALL (NEGATIVE) H 12/07/18 21:10 Urine RBC 0-2 /hpf (0-5) 12/07/18 21:10 Urine WBC 10-25 /hpf (0-5) H 12/07/18 21:10 Ur Epithelial Cells FEW /lpf (FEW) 12/07/18 21:10 Urine Bacteria MODERATE /hpf (NONE SEEN) H 12/07/18 21:10 Stool Occult Blood NEGATIVE (NEGATIVE) 12/09/18 10:45 Influenza A (Rapid) NEG FOR INF A 12/07/18 22:35 Influenza B (Rapid) NEG FOR INF B 12/07/18 22:35 Blood Type O POSITIVE 12/08/18 17:45 Antibody Screen NEGATIVE 12/08/18 17:45 Crossmatch See Detail 12/08/18 17:45 - Physical Exam Vitals and I&O: Vital Signs Temp 97.2 F 12/10/18 00:00 Pulse 67 12/10/18 00:00 Resp 19 12/10/18 00:00 BP 140/58 12/10/18 00:00 Pulse Ox 100 12/10/18 00:00 Intake & Output 12/09/18 12/09/18 12/10/18 06:59 18:59 06:59 Intake Total 80 400 Output Total 4 Balance 80 396 Weight (lbs) 50.377 kg 50.349 kg Intake: Intake, IV Amount 50 50 cefTRIAXone 1 gm In 50 50 Sodium Chloride 0.9% 50 ml @ 100 mls/hr IV Q12HR [facility] Rx#:[id number] Oral 30 350 Output: Stool 4 Other: # Voids 2 # Bowel Movements 2 Stool Characteristics Liquid Liquid Liquid Brown Brown Brown Weight Source Bedscale Bedscale Active Medications: Current Medications Acetaminophen (Tylenol) 650 mg PO Q4HR PRN PRN Reason: Pain or Fever >101 Stop: 02/06/19 02:58 Artificial Tears (Artificial Tears Ophth Soln) 1 drop EACH EYE BID [facility] Stop: 02/06/19 08:59 Last Admin: 12/09/18 18:42 Dose: 1 drop Aspirin (Aspirin Chewable) 81 mg PO DAILY [facility] Stop: 02/06/19 08:59 Last Admin: 12/09/18 10:01 Dose: 81 mg Bisacodyl (Dulcolax 10 Mg Supp) 10 mg RC DAILY PRN PRN Reason: Constipation Stop: 02/06/19 02:58 Brimonidine Tartrate (Alphagan 0.2% Ophth Soln) 1 drop RIGHT EYE BID [facility] Stop: 02/06/19 08:59 Last Admin: 12/09/18 18:42 Dose: 1 drop Docusate Sodium (Colace) 100 mg PO BID [facility] Stop: 02/06/19 08:59 Last Admin: 12/09/18 18:00 Dose: Not Given Ferrous Sulfate (Iron) 325 mg PO DAILY [facility] Stop: 02/06/19 08:59 Last Admin: 12/09/18 10:04 Dose: 325 mg Folic Acid (Folate) 2 mg PO DAILY [facility] Stop: 02/06/19 08:59 Last Admin: 12/09/18 09:59 Dose: 2 mg Furosemide (Lasix) 20 mg PO DAILY [facility] Stop: 02/07/19 08:59 Last Admin: 12/09/18 10:01 Dose: 20 mg Glimepiride (Amaryl) 8 mg PO DAILY [facility] Stop: 02/06/19 08:59 Last Admin: 12/09/18 10:00 Dose: 8 mg Ceftriaxone Sodium 1 gm/ (Sodium Chloride) 50 mls @ 100 mls/hr IV Q12HR [facility] Stop: 02/06/19 13:59 Last Admin: 12/09/18 21:07 Dose: 100 mls/hr Insulin Aspart (Novolog Insulin Sliding Scale) 0 units SUBQ [facility]; Protocol Stop: 02/06/19 20:59 Last Admin: 12/09/18 21:40 Dose: Not Given Lactulose (Cephulac) 40 gm PO QID [facility] Stop: 02/06/19 08:59 Last Admin: 12/09/18 21:02 Dose: 40 gm Latanoprost (Xalatan 0.005% Oph Soln) 1 drop EACH EYE HS [facility] Stop: 02/06/19 20:59 Last Admin: 12/09/18 21:02 Dose: 1 drop Levothyroxine Sodium (Synthroid) 0.2 mg PO QDAC [facility] Stop: 02/06/19 07:29 Last Admin: 12/09/18 06:44 Dose: 0.2 mg Losartan Potassium (Cozaar) 25 mg PO DAILY [facility] Stop: 02/06/19 08:59 Last Admin: 12/09/18 09:58 Dose: 25 mg Magnesium Hydroxide (Milk Of Magnesia) 30 ml PO DAILY PRN PRN Reason: Constipation Stop: 02/06/19 02:58 Metoprolol Tartrate (Lopressor) 25 mg PO BID [facility] Stop: 02/06/19 08:59 Last Admin: 12/09/18 18:00 Dose: 25 mg Ondansetron HCl (Zofran Odt) 4 mg PO Q8H [facility] Stop: 02/06/19 02:59 Last Admin: 12/09/18 13:21 Dose: Not Given Pantoprazole Sodium (Protonix) 40 mg PO QDAC [facility] Stop: 02/06/19 07:29 Last Admin: 12/09/18 06:44 Dose: 40 mg Rifaximin (Xifaxan) 550 mg PO BID [facility] Stop: 02/06/19 08:59 Last Admin: 12/09/18 18:00 Dose: 550 mg Sitagliptin Phosphate (Januvia) 100 mg PO QDAC [facility] Stop: 02/06/19 07:29 Last Admin: 12/09/18 10:06 Dose: 100 mg Sodium Phosphate (Fleet Enema) 135 ml RC DAILY PRN PRN Reason: Constipation Stop: 02/06/19 02:58 Spironolactone (Aldactone) 50 mg PO BID [facility] Stop: 02/07/19 08:59 Last Admin: 12/09/18 18:07 Dose: Not Given General: no acute distress, cachectic HEENT: atraumatic, normocephalic, PERRLA, EOMI Neck: supple, no thyromegaly Cardiovascular: S1S2, regular Lungs: clear to auscultation bilaterally, clear to percussion Abdomen: soft, bowel sounds, no tender, no distended, no mass Extremities: no cyanosis, no clubbing, no edema Neurological: awake, alert, oriented Skin: intact Infectious Disease Assmt/Plan - Assessment Assessment: 1. Anemia likely 2/2 cirrhosis. r/o gi bleed/ 2. Dehydration. 3. Liver cirrhosis. 4. Metabolic, hepatic encephalopathy. 5. Pneumonia, bilateral pleural effusion. 6. CHF. 7. Right eye blindness. - Plan Plan: Will continue same treatment. Consultation by Dr Colleen Christian, Dr bartlett appreciated. GI consult and hemalology consult appreciated. Anemia w/u. One unit of PRBC transfused. stool for occult blood. Nutritional Asmnt/Malnutr-PDOC - Dietary Evaluation Malnutrition Findings (Please click <Entered> for more info): Nutritional Asmnt/Malnutrition Start: 12/09/18 15: 06 Text: Status: Complete Freq: Protocol: Document 12/09/18 15:07 LCHENG (Rec: 12/09/18 15:23 EDITH [email or web address]) Nutritional Asmnt/Malnutrition Patient General Information Nutritional Screening High Risk Diagnosis dehydration, anemia Pertinent Medical Hx/Surgical Hx HTN, Dm, CHF, asthma/COPD, thyroid disorder, blindness, cirrhosis, hernia Subjective Information Pt seen sleeping in bed at time of visit, Ivorian speaking noted. Per CIVIL ENGINEER, pt has poor PO intake d/t no appetite and stomach up set. PO intake 0-25% on 12/08. Pt was on NPO d/t shceduled U/S today. Current Diet Order/ Nutrition Support NPO. was on mech soft chopped ALEK, CCHO Pertinent Medications colace, iron, folate, lasix, novolog, synthroid, zofran, protonix, januvia Pertinent Labs 12/09 Na 148, K 5.4, Cl 117, Gluocse 177, POC 137-180 2/ K 5.5, Cl 114, Glucose 91, POC 79-243, Ca 8.3 Nutritional Hx/Data Height 1.55 m Height (Calculated Centimeters) 154.9 Current Weight (lbs) 50.349 kg Weight (Calculated Kilograms) 50.3 Weight (Calculated Grams) 57250.8 [place] Body Weight 105 Body Mass Index (BMI) 20.9 Weight Status Approriate GI Symptoms GI Symptoms None Last BM 2/4 x 2 Difficult in: None Skin Integrity/Comment: pressure area reddened to sacral Current %PO Negligible < 25% Estimated Nutritional Goals BEE in Kcals: Using Current wt Calories/Kcals/Kg 25-30 Kcals Calculated 4812-1021 Protein: Using Current wt Protein g/k Protein Calculated 50 Fluid: ml 1250-1500ml (1ml/kcal) Nutritional Problem 2. Problem Problem altered nutrition related labs Etiology possible renal dysfunction, hyperglycemia Signs/Symptoms: K 5.4-5.5, Gluocse 177, POC 137-180 1. Problem Problem inadequate food intake Etiology poor appetite and stomach upset Signs/Symptoms: PO intake 0-25% Intervention/Recommendation Comments 1. Continue with mech soft chopped ALEK CCHO diet as ordered. consider adding renal diet if K continue elevated. 2. Add Glucerna TID for extra kcal and protein d/t poor appetite. 3. Monitor PO intake, wt, labs and skin integrity 4. F/U as high risk in 2-3 days Expected Outcomes/Goals Expected Outcomes/Goals 1. PO intake improved to meet at least 75% of nutritional needs. 2. Wt stability, skin to remain intact, labs to approach WNL.
[2018-12-10 05:11] LABS: % BASOPHILS 0.8 % (0.0-2.0); % EOSINOPHILS 1.3 % (0.0-5.0); % LYMPHOCYTES 9.6 % (20.0-50.0); % NEUTROPHILS 75.3 % (40.0-80.0); BASOPHILE ABSOLUTE 0.1 Th/cumm (0-0.2); EOSINOPHILE ABSOLUTE 0.1 Th/cmm (0.1-0.4); HEMATOCRIT 30.9 % (41.0-60); HEMOGLOBIN 10.3 gm/dL (12-16); LYMPHOCYTE ABSOLUTE 0.8 Th/cmm (1.5-3.0); MEAN CELL VOLUME 98.5 fl (81-100); MEAN CORPUSCULAR HEMOGLOBIN 32.8 pg (27.0-31.0); MEAN CORPUSCULAR HGB CONC 33.3 pg (28.0-36.0); MEAN PLATELET VOLUME 9.8 fl; NEUTROPHILE ABSOLUTE 5.9 Th/cmm (1.8-8.0); PLATELET COUNT 111 Th/cmm (150-400); RED BLOOD COUNT 3.13 Mil/cmm (3.80-5.20); RED CELL DISTRIBUTION WIDTH 23.3 % (11.5-20.0)
[2018-12-10 05:27] LABS: ALB/GLOB RATIO 0.7 (1.0-1.8); ALBUMIN 2.4 gm/dL (3.7-5.3); ALKALINE PHOSPHATASE 165 U/L (34-104); ANION GAP 10.6 (7.0-16.0); BUN - UREA NITROGEN 29 mg/dL (7-25); CALCIUM SERUM 8.1 mg/dL (8.6-10.3); CARBON DIOXIDE 27.5 mEq/L (21.0-31.0); CHLORIDE 112 mEq/L (98-107); GFR AFRICAN-AMERICAN > 60.0 ml/min (>90); GFR NON AFRICAN-AMERICAN 58.3 ml/min; GLUCOSE 173 mg/dL (70-105); POTASSIUM SERUM 5.1 mEq/L (3.5-5.1); SGOT 51 U/L (13-39); SGPT/ALT 40 U/L (7-52); SODIUM SERUM 145 mEq/L (136-145); TOTAL PROTEIN,SERUM 5.7 gm/dL (6.0-8.3)
[2018-12-10 05:29] LABS: WHITE BLOOD COUNT 7.9 Th/cmm (4.8-10.8)
[2018-12-10] MEDS: Levothyroxine 0.1 Mg Tab PO SCH (06:31)
[2018-12-10] MEDS: Pantoprazole 40 mg EC Tab PO SCH (06:32)
[2018-12-10 06:50] LABS: INR 1.22 (0.5-1.4); PROTHROMBIN TIME (TEST) 12.6 SECONDS (9.5-11.5)
[2018-12-10] MEDS: INSULIN ASPART SLIDING SCALE 100 UNITS/ML UNIT SUBQ SCH ×4 (07:31→20:48)
[2018-12-10] MEDS: cefTRIAXone 1 GM in Sodium Chloride 0.9% 50 ML IV SCH ×2 (09:39→20:47)
[2018-12-10] MEDS: Ferrous Sulfate 325 MG TAB PO SCH (09:40)
[2018-12-10] MEDS: Polyvinyl Alcohol Ophth Soln 15 mL Bottle EACH EYE SCH ×2 (09:40→17:42)
[2018-12-10] MEDS: Lactulose 10 Gm/15 mL 30mL UDC PO SCH ×4 (09:44→20:47)
[2018-12-10] MEDS: Multivitamin w/ Minerals Tab PO SCH (09:45)
[2018-12-10] MEDS: Aspirin 81mg Chewable Tab PO SCH (09:50)
--- NOTE | 2018-12-10 11:35 | General Progress Note ---
Subjective - Review of Systems Service Date: 12/10/18 Subjective: Patient has less shortness of breath minimal cough Patient has thoracentesis Objective - Results Result Diagrams: 12/10/18 04:45 12/10/18 04:45 Recent Labs: Laboratory Last Values WBC 7.9 Th/cmm (4.8-10.8) D 12/10/18 04:45 RBC 3.13 Mil/cmm (3.80-5.20) L 12/10/18 04:45 Hgb 10.3 gm/dL (12-16) L 12/10/18 04:45 Hct 30.9 % (41.0-60) L 12/10/18 04:45 MCV 98.5 fl (81-100) 12/10/18 04:45 MCH 32.8 pg (27.0-31.0) H 12/10/18 04:45 MCHC Differential 33.3 pg (28.0-36.0) 12/10/18 04:45 RDW 23.3 % (11.5-20.0) H 12/10/18 04:45 Plt Count 111 Th/cmm (150-400) L 12/10/18 04:45 MPV 9.8 fl 12/10/18 04:45 Add Manual Diff YES 12/08/18 05:05 Neutrophils % 75.3 % (40.0-80.0) 12/10/18 04:45 Band Neutrophils % 0 % (0-10) 12/07/18 20:37 Lymphocytes % 9.6 % (20.0-50.0) L 12/10/18 04:45 Monocytes % 13.0 % (2.0-10.0) H 12/10/18 04:45 Eosinophils % 1.3 % (0.0-5.0) 12/10/18 04:45 Basophils % 0.8 % (0.0-2.0) 12/10/18 04:45 Neutrophils (Manual) 78 % (40-80) 12/08/18 05:05 Lymphocytes 7 % (20-50) L 12/08/18 05:05 Monocytes 11 % (2-10) H 12/08/18 05:05 Eosinophils 4 % (0-5) 12/08/18 05:05 Basophils 0 % (0-3) 12/07/18 20:37 Platelet Estimate ADEQUATE (NORMAL) 12/08/18 05:05 Macrocytosis 1+ 12/08/18 05:05 Total Retics Counted 5.4 % (0.5-1.5) H 12/08/18 17:45 Absolute Retic 126.9 Th/cmm 12/08/18 17:45 Corrected Retic Count 3.0 % (0.5-1.5) H 12/08/18 17:45 PT 12.6 SECONDS (9.5-11.5) H 12/10/18 05:45 INR 1.22 (0.5-1.4) 12/10/18 05:45 PTT (Actin FS) 29.6 SECONDS (26.0-38.0) 12/10/18 05:45 Sodium 145 mEq/L (136-145) 12/10/18 04:45 Potassium 5.1 mEq/L (3.5-5.1) 12/10/18 04:45 Chloride 112 mEq/L (98-107) H 12/10/18 04:45 Carbon Dioxide 27.5 mEq/L (21.0-31.0) 12/10/18 04:45 Anion Gap 10.6 (7.0-16.0) 12/10/18 04:45 BUN 29 mg/dL (7-25) H 12/10/18 04:45 Creatinine 1.0 mg/dL (0.6-1.2) 12/10/18 04:45 Est GFR ( Amer) > 60.0 ml/min (>90) 12/10/18 04:45 Est GFR (Non-Af Amer) 58.3 ml/min 12/10/18 04:45 BUN/Creatinine Ratio 29.0 12/10/18 04:45 Glucose 173 mg/dL (70-105) H 12/10/18 04:45 POC Glucose 151 MG/DL (70 - 105) H 12/10/18 05:47 Calcium 8.1 mg/dL (8.6-10.3) L 12/10/18 04:45 Total Bilirubin 1.0 mg/dL (0.3-1.0) 12/10/18 04:45 AST 51 U/L (13-39) H 12/10/18 04:45 ALT 40 U/L (7-52) 12/10/18 04:45 Alkaline Phosphatase 165 U/L (34-104) H 12/10/18 04:45 Ammonia 68 umol/L (16-53) H 12/08/18 05:05 Troponin I 0.03 ng/mL (0.01-0.05) 12/07/18 20:37 B-Natriuretic Peptide 748.0 pg/mL (5.0-100.0) H 12/10/18 04:45 Total Protein 5.7 gm/dL (6.0-8.3) L 12/10/18 04:45 Albumin 2.4 gm/dL (3.7-5.3) L 12/10/18 04:45 Globulin 3.3 gm/dL 12/10/18 04:45 Albumin/Globulin Ratio 0.7 (1.0-1.8) L 12/10/18 04:45 LDL Cholesterol Direct 72 mg/dL (75-193) L 12/08/18 17:45 Tumor Marker AFP 1.7 ng/mL (0.0-8.3) 12/08/18 05:05 Urine Source CLEAN C 12/07/18 21:10 Urine Color YELLOW 12/07/18 21:10 Urine Clarity HAZY (CLEAR) 12/07/18 21:10 Urine pH 6.0 (4.6 - 8.0) 12/07/18 21:10 Ur Specific [place] 1.025 (1.005-1.030) 12/07/18 21:10 Urine Protein NEGATIVE mg/dL (NEGATIVE) 12/07/18 21:10 Urine Glucose (UA) NEGATIVE mg/dL (NEGATIVE) 12/07/18 21:10 Urine Ketones NEGATIVE mg/dL (NEGATIVE) 12/07/18 21:10 Urine Blood TRACE (NEGATIVE) 12/07/18 21:10 Urine Nitrate NEGATIVE (NEGATIVE) 12/07/18 21:10 Urine Bilirubin NEGATIVE (NEGATIVE) 12/07/18 21:10 Urine Urobilinogen 0.2 E.U./dL (0.2 - 1.0) 12/07/18 21:10 Ur Leukocyte Esterase SMALL (NEGATIVE) H 12/07/18 21:10 Urine RBC 0-2 /hpf (0-5) 12/07/18 21:10 Urine WBC 10-25 /hpf (0-5) H 12/07/18 21:10 Ur Epithelial Cells FEW /lpf (FEW) 12/07/18 21:10 Urine Bacteria MODERATE /hpf (NONE SEEN) H 12/07/18 21:10 Stool Occult Blood NEGATIVE (NEGATIVE) 12/09/18 10:45 Influenza A (Rapid) NEG FOR INF A 12/07/18 22:35 Influenza B (Rapid) NEG FOR INF B 12/07/18 22:35 Blood Type O POSITIVE 12/08/18 17:45 Antibody Screen NEGATIVE 12/08/18 17:45 Crossmatch See Detail 12/08/18 17:45 - Physical Exam Vitals and I&O: Vital Signs Temp 97.9 F 12/10/18 08:00 Pulse 68 12/10/18 09:49 Resp 18 12/10/18 08:09 BP 124/52 12/10/18 09:49 Pulse Ox 98 12/10/18 08:09 Intake & Output 12/09/18 12/10/18 12/10/18 18:59 06:59 18:59 Intake Total 400 200 Output Total 4 Balance 396 200 Weight (lbs) 50.349 kg 50.349 kg Intake: Intake, IV Amount 50 50 cefTRIAXone 1 gm In 50 50 Sodium Chloride 0.9% 50 ml @ 100 mls/hr IV Q12HR [facility] Rx#:[id number] Oral 350 150 Output: Stool 4 Other: # Voids 4 # Bowel Movements 3 Stool Characteristics Liquid Liquid Brown Brown Weight Source Bedscale Bedscale Active Medications: Current Medications Acetaminophen (Tylenol) 650 mg PO Q4HR PRN PRN Reason: Pain or Fever >101 Stop: 02/06/19 02:58 Artificial Tears (Artificial Tears Ophth Soln) 1 drop EACH EYE BID [facility] Stop: 02/06/19 08:59 Last Admin: 12/10/18 09:40 Dose: 1 drop Aspirin (Aspirin Chewable) 81 mg PO DAILY [facility] Stop: 02/06/19 08:59 Last Admin: 12/10/18 09:50 Dose: Not Given Bisacodyl (Dulcolax 10 Mg Supp) 10 mg RC DAILY PRN PRN Reason: Constipation Stop: 02/06/19 02:58 Brimonidine Tartrate (Alphagan 0.2% Ophth Soln) 1 drop RIGHT EYE BID [facility] Stop: 02/06/19 08:59 Last Admin: 12/10/18 09:40 Dose: 1 drop Docusate Sodium (Colace) 100 mg PO BID [facility] Stop: 02/06/19 08:59 Last Admin: 12/10/18 09:40 Dose: Not Given Ferrous Sulfate (Iron) 325 mg PO DAILY [facility] Stop: 02/06/19 08:59 Last Admin: 12/10/18 09:40 Dose: Not Given Folic Acid (Folate) 2 mg PO DAILY [facility] Stop: 02/06/19 08:59 Last Admin: 12/10/18 09:40 Dose: Not Given Furosemide (Lasix) 20 mg PO DAILY [facility] Stop: 02/07/19 08:59 Last Admin: 12/10/18 09:40 Dose: Not Given Glimepiride (Amaryl) 8 mg PO DAILY [facility] Stop: 02/06/19 08:59 Last Admin: 12/10/18 09:44 Dose: Not Given Ceftriaxone Sodium 1 gm/ (Sodium Chloride) 50 mls @ 100 mls/hr IV Q12HR [facility] Stop: 02/06/19 13:59 Last Admin: 12/10/18 09:39 Dose: 100 mls/hr Insulin Aspart (Novolog Insulin Sliding Scale) 0 units SUBQ [facility]; Protocol Stop: 02/06/19 20:59 Last Admin: 12/10/18 07:31 Dose: Not Given Lactulose (Cephulac) 40 gm PO QID [facility] Stop: 02/06/19 08:59 Last Admin: 12/10/18 09:44 Dose: Not Given Latanoprost (Xalatan 0.005% Oph Soln) 1 drop EACH EYE HS [facility] Stop: 02/06/19 20:59 Last Admin: 12/09/18 21:02 Dose: 1 drop Levothyroxine Sodium (Synthroid) 0.2 mg PO QDAC [facility] Stop: 02/06/19 07:29 Last Admin: 12/10/18 06:31 Dose: Not Given Losartan Potassium (Cozaar) 25 mg PO DAILY [facility] Stop: 02/06/19 08:59 Last Admin: 12/10/18 09:49 Dose: Not Given Magnesium Hydroxide (Milk Of Magnesia) 30 ml PO DAILY PRN PRN Reason: Constipation Stop: 02/06/19 02:58 Metoprolol Tartrate (Lopressor) 25 mg PO BID [facility] Stop: 02/06/19 08:59 Last Admin: 12/10/18 09:49 Dose: Not Given Ondansetron HCl (Zofran Odt) 4 mg PO Q8H [facility] Stop: 02/06/19 02:59 Last Admin: 12/10/18 04:00 Dose: Not Given Pantoprazole Sodium (Protonix) 40 mg PO QDAC [facility] Stop: 02/06/19 07:29 Last Admin: 12/10/18 06:32 Dose: Not Given Rifaximin (Xifaxan) 550 mg PO BID [facility] Stop: 02/06/19 08:59 Last Admin: 12/10/18 09:49 Dose: Not Given Sitagliptin Phosphate (Januvia) 100 mg PO QDAC [facility] Stop: 02/06/19 07:29 Last Admin: 12/10/18 06:32 Dose: Not Given Sodium Phosphate (Fleet Enema) 135 ml RC DAILY PRN PRN Reason: Constipation Stop: 02/06/19 02:58 Spironolactone (Aldactone) 50 mg PO BID [facility] Stop: 02/07/19 08:59 Last Admin: 12/10/18 09:49 Dose: Not Given General: Alert HEENT: Mucous membr. moist/pink Neck: Supple, JVD (flat), +2 carotid pulse wo bruit Cardiovascular: Regular rate, Normal S1, Normal S2, Systolic murmurs Lungs: Other (basilar rales) Abdomen: Bowel sounds, Soft Extremities: Pulses (normal) Neurological: Normal gait, Cranial nerves 3-12 NL, Reflexes 2+ Skin: no Rash, no Breakdown, no Significant lesion, no Other Assessment/Plan - Assessment Assessment: Pneumonia Bilateral pleural effusion Mild congestive heart failure diastolic dysfunction and acute Hypothyroid Sinusitis Cirrhosis of liver Diabetes mellitus type 2 insulin-dependent Hyperkalemia Right eye blindness Glaucoma Iron deficiency anemia Thrombocytopenia Echocardiogram patient has severe mitral regurgitation severe tricuspid regurgitation severe pulmonary hypertension with right ventricular systolic pressure 64 mmHg - Plan Plan: Continue antibiotics monitor diabetes Echocardiogram for congestive heart failure Ejection fraction normal severe mitral regurgitation severe tricuspid regurgitation severe pulmonary hypertension with right ventricular systolic pressure 60 mmHg Patient had thoracentesis today Nutritional Asmnt/Malnutr-PDOC - Dietary Evaluation Malnutrition Findings (Please click <Entered> for more info): Nutritional Asmnt/Malnutrition Start: 12/09/18 15: 06 Text: Status: Complete Freq: Protocol: Document 12/09/18 15:07 LCHENG (Rec: 12/09/18 15:23 LCHENG [email or web address]) Nutritional Asmnt/Malnutrition Patient General Information Nutritional Screening High Risk Diagnosis dehydration, anemia Pertinent Medical Hx/Surgical Hx HTN, Dm, CHF, asthma/COPD, thyroid disorder, blindness, cirrhosis, hernia Subjective Information Pt seen sleeping in bed at time of visit, Chinese speaking noted. Per GRAPHOTYPE OPERATOR, pt has poor PO intake d/t no appetite and stomach up set. PO intake 0-25% on 12/08. Pt was on NPO d/t shceduled U/S today. Current Diet Order/ Nutrition Support NPO. was on mech soft chopped ALEK, CCHO Pertinent Medications colace, iron, folate, lasix, novolog, synthroid, zofran, protonix, januvia Pertinent Labs 12/09 Na 148, K 5.4, Cl 117, Gluocse 177, POC 137-180 2 K 5.5, Cl 114, Glucose 91, POC 79-243, Ca 8.3 Nutritional Hx/Data Height 1.55 m Height (Calculated Centimeters) 154.9 Current Weight (lbs) 50.349 kg Weight (Calculated Kilograms) 50.3 Weight (Calculated Grams) 39015.8 [place] Body Weight 105 Body Mass Index (BMI) 20.9 Weight Status Approriate GI Symptoms GI Symptoms None Last BM 2/ x 2 Difficult in: None Skin Integrity/Comment: pressure area reddened to sacral Current %PO Negligible < 25% Estimated Nutritional Goals BEE in Kcals: Using Current wt Calories/Kcals/Kg 25-30 Kcals Calculated 2984-0850 Protein: Using Current wt Protein g/k Protein Calculated 50 Fluid: ml 1250-1500ml (1ml/kcal) Nutritional Problem 2. Problem Problem altered nutrition related labs Etiology possible renal dysfunction, hyperglycemia Signs/Symptoms: K 5.4-5.5, Gluocse 177, POC 137-180 1. Problem Problem inadequate food intake Etiology poor appetite and stomach upset Signs/Symptoms: PO intake 0-25% Intervention/Recommendation Comments 1. Continue with mech soft chopped ALEK CCHO diet as ordered. consider adding renal diet if K continue elevated. 2. Add Glucerna TID for extra kcal and protein d/t poor appetite. 3. Monitor PO intake, wt, labs and skin integrity 4. F/U as high risk in 2-3 days Expected Outcomes/Goals Expected Outcomes/Goals 1. PO intake improved to meet at least 75% of nutritional needs. 2. Wt stability, skin to remain intact, labs to approach WNL.
--- NOTE | 2018-12-10 12:13 | Diagnostic Imaging Report ---
CHEST X-RAY: AP view INDICATION: Status post left thoracentesis COMPARISON: Chest x-ray 12/09/2018 FINDINGS: There has been marked decrease in size of left effusion. No evidence of a gross pneumothorax. Moderate right effusion is noted. Cardiomegaly is noted with atherosclerosis. IMPRESSION: Status post left thoracentesis with marked decrease in size of left effusion. No evidence of pneumothorax Moderate right effusion. Pneumonia of the lung bases cannot be excluded.
[2018-12-10 12:21] LABS: FOLIC ACID >20.0 ng/mL (>3.0)
[2018-12-10 12:21] LABS: FERRITIN 130 ng/mL (15-150); FOLIC ACID >20.0 ng/mL (>3.0); IRON LC 38 ug/dL (27-139); TIBC (LC) 160 ug/dL (250-450); UIBC 122 ug/dL (118-369)
--- NOTE | 2018-12-10 12:50 | Progress Notes ---
DATE: 12/09/2018 PULMONARY PROGRESS NOTE SUBJECTIVE: The patient appears to be doing okay and breathing little bit better. Minimal cough. No congestion. OBJECTIVE: VITAL SIGNS: Temperature 97.6, pulse 61, respiration 18, blood pressure 158/61, saturating 100%. CHEST: Good breath sounds, decrease in bases. HEART: Regular rate and rhythm. ABDOMEN: Soft. EXTREMITIES: No edema. LABORATORY AND DIAGNOSTIC DATA: Chest x-ray: Bilateral effusion. WBC 5.9, hemoglobin 10.1. Sodium 140, potassium 5.4, creatinine 1.0. IMPRESSION: This is a 68-year-old female: 1. Bilateral effusion. 2. Liver cirrhosis. 3. Pleural effusion. 4. Congestive heart failure. PLAN: 1. Continue diuresis. 2. May need ultrasound-guided thoracentesis, especially on the left side to improve lung capacity. JOB# [id number]
--- NOTE | 2018-12-10 13:40 | Diagnostic Imaging Report ---
Ultrasound-guided left-sided thoracentesis HISTORY: Left pleural effusion COMPARISON: Chest x-ray on 12/09/2018 Technique/procedure: Informed consent was obtained and sterile techniques were utilized. Using ultrasound guidance 1.3 liters of therese-colored fluid was drained from the left pleural space and sent to the laboratory for analysis. The patient tolerated the procedure without any immediate complications. IMPRESSION: Successful left-sided ultrasound-guided thoracentesis as above.
--- NOTE | 2018-12-10 14:56 | GI Progress Note ---
Subjective - Review of Systems Service Date: 12/10/18 Subjective: More clear today, no overt bleeding Objective - Results Result Diagrams: 12/10/18 04:45 12/10/18 04:45 Recent Labs: Laboratory Last Values WBC 7.9 Th/cmm (4.8-10.8) D 12/10/18 04:45 RBC 3.13 Mil/cmm (3.80-5.20) L 12/10/18 04:45 Hgb 10.3 gm/dL (12-16) L 12/10/18 04:45 Hct 30.9 % (41.0-60) L 12/10/18 04:45 MCV 98.5 fl (81-100) 12/10/18 04:45 MCH 32.8 pg (27.0-31.0) H 12/10/18 04:45 MCHC Differential 33.3 pg (28.0-36.0) 12/10/18 04:45 RDW 23.3 % (11.5-20.0) H 12/10/18 04:45 Plt Count 111 Th/cmm (150-400) L 12/10/18 04:45 MPV 9.8 fl 12/10/18 04:45 Add Manual Diff YES 12/08/18 05:05 Neutrophils % 75.3 % (40.0-80.0) 12/10/18 04:45 Band Neutrophils % 0 % (0-10) 12/07/18 20:37 Lymphocytes % 9.6 % (20.0-50.0) L 12/10/18 04:45 Monocytes % 13.0 % (2.0-10.0) H 12/10/18 04:45 Eosinophils % 1.3 % (0.0-5.0) 12/10/18 04:45 Basophils % 0.8 % (0.0-2.0) 12/10/18 04:45 Neutrophils (Manual) 78 % (40-80) 12/08/18 05:05 Lymphocytes 7 % (20-50) L 12/08/18 05:05 Monocytes 11 % (2-10) H 12/08/18 05:05 Eosinophils 4 % (0-5) 12/08/18 05:05 Basophils 0 % (0-3) 12/07/18 20:37 Platelet Estimate ADEQUATE (NORMAL) 12/08/18 05:05 Macrocytosis 1+ 12/08/18 05:05 Total Retics Counted 5.4 % (0.5-1.5) H 12/08/18 17:45 Absolute Retic 126.9 Th/cmm 12/08/18 17:45 Corrected Retic Count 3.0 % (0.5-1.5) H 12/08/18 17:45 PT 12.6 SECONDS (9.5-11.5) H 12/10/18 05:45 INR 1.22 (0.5-1.4) 12/10/18 05:45 PTT (Actin FS) 29.6 SECONDS (26.0-38.0) 12/10/18 05:45 Sodium 145 mEq/L (136-145) 12/10/18 04:45 Potassium 5.1 mEq/L (3.5-5.1) 12/10/18 04:45 Chloride 112 mEq/L (98-107) H 12/10/18 04:45 Carbon Dioxide 27.5 mEq/L (21.0-31.0) 12/10/18 04:45 Anion Gap 10.6 (7.0-16.0) 12/10/18 04:45 BUN 29 mg/dL (7-25) H 12/10/18 04:45 Creatinine 1.0 mg/dL (0.6-1.2) 12/10/18 04:45 Est GFR ( Amer) > 60.0 ml/min (>90) 12/10/18 04:45 Est GFR (Non-Af Amer) 58.3 ml/min 12/10/18 04:45 BUN/Creatinine Ratio 29.0 12/10/18 04:45 Glucose 173 mg/dL (70-105) H 12/10/18 04:45 POC Glucose 123 MG/DL (70 - 105) H 12/10/18 12:14 Calcium 8.1 mg/dL (8.6-10.3) L 12/10/18 04:45 Iron 38 ug/dL (27-139) 12/08/18 17:45 TIBC 160 ug/dL (250-450) L 12/08/18 17:45 Iron Saturation 24 % (15-55) 12/08/18 17:45 Unsaturated IBC 122 ug/dL (118-369) 12/08/18 17:45 Erythropoietin 45.7 mIU/mL (2.6-18.5) H 12/08/18 17:45 Ferritin 130 ng/mL (15-150) 12/08/18 17:45 Total Bilirubin 1.0 mg/dL (0.3-1.0) 12/10/18 04:45 AST 51 U/L (13-39) H 12/10/18 04:45 ALT 40 U/L (7-52) 12/10/18 04:45 Alkaline Phosphatase 165 U/L (34-104) H 12/10/18 04:45 Ammonia 68 umol/L (16-53) H 12/08/18 05:05 Troponin I 0.03 ng/mL (0.01-0.05) 12/07/18 20:37 B-Natriuretic Peptide 748.0 pg/mL (5.0-100.0) H 12/10/18 04:45 Total Protein 5.7 gm/dL (6.0-8.3) L 12/10/18 04:45 Albumin 2.4 gm/dL (3.7-5.3) L 12/10/18 04:45 Globulin 3.3 gm/dL 12/10/18 04:45 Albumin/Globulin Ratio 0.7 (1.0-1.8) L 12/10/18 04:45 LDL Cholesterol Direct 72 mg/dL (75-193) L 12/08/18 17:45 Tumor Marker AFP 1.7 ng/mL (0.0-8.3) 12/08/18 05:05 Vitamin B12 >1999 pg/mL (232-1245) H 12/09/18 04:50 Folic Acid >20.0 ng/mL (>3.0) 12/09/18 04:50 Urine Source CLEAN C 12/07/18 21:10 Urine Color YELLOW 12/07/18 21:10 Urine Clarity HAZY (CLEAR) 12/07/18 21:10 Urine pH 6.0 (4.6 - 8.0) 12/07/18 21:10 Ur Specific [place] 1.025 (1.005-1.030) 12/07/18 21:10 Urine Protein NEGATIVE mg/dL (NEGATIVE) 12/07/18 21:10 Urine Glucose (UA) NEGATIVE mg/dL (NEGATIVE) 12/07/18 21:10 Urine Ketones NEGATIVE mg/dL (NEGATIVE) 12/07/18 21:10 Urine Blood TRACE (NEGATIVE) 12/07/18 21:10 Urine Nitrate NEGATIVE (NEGATIVE) 12/07/18 21:10 Urine Bilirubin NEGATIVE (NEGATIVE) 12/07/18 21:10 Urine Urobilinogen 0.2 E.U./dL (0.2 - 1.0) 12/07/18 21:10 Ur Leukocyte Esterase SMALL (NEGATIVE) H 12/07/18 21:10 Urine RBC 0-2 /hpf (0-5) 12/07/18 21:10 Urine WBC 10-25 /hpf (0-5) H 12/07/18 21:10 Ur Epithelial Cells FEW /lpf (FEW) 12/07/18 21:10 Urine Bacteria MODERATE /hpf (NONE SEEN) H 12/07/18 21:10 Fluid Glucose 188.0 mg/dL 12/10/18 11:10 Fluid Total Protein < 3.0 g/dL 12/10/18 11:10 Stool Occult Blood NEGATIVE (NEGATIVE) 12/09/18 10:45 Influenza A (Rapid) NEG FOR INF A 12/07/18 22:35 Influenza B (Rapid) NEG FOR INF B 12/07/18 22:35 Blood Type O POSITIVE 12/08/18 17:45 Antibody Screen NEGATIVE 12/08/18 17:45 Crossmatch See Detail 12/08/18 17:45 - Physical Exam Vitals and I&O: Vital Signs Temp 97.2 F 12/10/18 11:47 Pulse 68 12/10/18 11:47 Resp 18 12/10/18 11:47 BP 108/31 12/10/18 11:47 Pulse Ox 99 12/10/18 11:47 Intake & Output 12/09/18 12/10/18 12/10/18 18:59 06:59 18:59 Intake Total 400 200 Output Total 4 Balance 396 200 Weight (lbs) 50.349 kg 50.349 kg Intake: Intake, IV Amount 50 50 cefTRIAXone 1 gm In 50 50 Sodium Chloride 0.9% 50 ml @ 100 mls/hr IV Q12HR YARI Rx#:[id number] Oral 350 150 Output: Stool 4 Other: # Voids 4 # Bowel Movements 3 Stool Characteristics Liquid Liquid Liquid Brown Brown Brown [facility] Active Medications: Current Medications Acetaminophen (Tylenol) 650 mg PO Q4HR PRN PRN Reason: Pain or Fever >101 Stop: 02/06/19 02:58 Artificial Tears (Artificial Tears Ophth Soln) 1 drop EACH EYE BID [facility] Stop: 02/06/19 08:59 Last Admin: 12/10/18 09:40 Dose: 1 drop Aspirin (Aspirin Chewable) 81 mg PO DAILY [facility] Stop: 02/06/19 08:59 Last Admin: 12/10/18 09:50 Dose: Not Given Bisacodyl (Dulcolax 10 Mg Supp) 10 mg RC DAILY PRN PRN Reason: Constipation Stop: 02/06/19 02:58 Brimonidine Tartrate (Alphagan 0.2% Oph Soln) 1 drop RIGHT EYE BID [facility] Stop: 02/06/19 08:59 Last Admin: 12/10/18 09:40 Dose: 1 drop Docusate Sodium (Colace) 100 mg PO BID [facility] Stop: 02/06/19 08:59 Last Admin: 12/10/18 09:40 Dose: Not Given Ferrous Sulfate (Iron) 325 mg PO DAILY [facility] Stop: 02/06/19 08:59 Last Admin: 12/10/18 09:40 Dose: Not Given Folic Acid (Folate) 2 mg PO DAILY [facility] Stop: 02/06/19 08:59 Last Admin: 12/10/18 09:40 Dose: Not Given Furosemide (Lasix) 20 mg PO DAILY [facility] Stop: 02/07/19 08:59 Last Admin: 12/10/18 09:40 Dose: Not Given Glimepiride (Amaryl) 8 mg PO DAILY [facility] Stop: 02/06/19 08:59 Last Admin: 12/10/18 09:44 Dose: Not Given Ceftriaxone Sodium 1 gm/ (Sodium Chloride) 50 mls @ 100 mls/hr IV Q12HR [facility] Stop: 02/06/19 13:59 Last Admin: 12/10/18 09:39 Dose: 100 mls/hr Insulin Aspart (Novolog Insulin Sliding Scale) 0 units SUBQ ACHS [facility]; Protocol Stop: 02/06/19 20:59 Last Admin: 12/10/18 12:16 Dose: Not Given Lactulose (Cephulac) 40 gm PO QID [facility] Stop: 02/06/19 08:59 Last Admin: 12/10/18 12:31 Dose: 40 gm Latanoprost (Xalatan 0.005% Ophth Soln) 1 drop EACH EYE HS [facility] Stop: 02/06/19 20:59 Last Admin: 12/09/18 21:02 Dose: 1 drop Levothyroxine Sodium (Synthroid) 0.2 mg PO QDAC [facility] Stop: 02/06/19 07:29 Last Admin: 12/10/18 06:31 Dose: Not Given Losartan Potassium (Cozaar) 25 mg PO DAILY [facility] Stop: 02/06/19 08:59 Last Admin: 12/10/18 09:49 Dose: Not Given Magnesium Hydroxide (Milk Of Magnesia) 30 ml PO DAILY PRN PRN Reason: Constipation Stop: 02/06/19 02:58 Metoprolol Tartrate (Lopressor) 25 mg PO BID [facility] Stop: 02/06/19 08:59 Last Admin: 12/10/18 09:49 Dose: Not Given Ondansetron HCl (Zofran Odt) 4 mg PO Q8H [facility] Stop: 02/06/19 02:59 Last Admin: 12/10/18 12:31 Dose: 4 mg Pantoprazole Sodium (Protonix) 40 mg PO QDAC [facility] Stop: 02/06/19 07:29 Last Admin: 12/10/18 06:32 Dose: Not Given Rifaximin (Xifaxan) 550 mg PO BID [facility] Stop: 02/06/19 08:59 Last Admin: 12/10/18 09:49 Dose: Not Given Sitagliptin Phosphate (Januvia) 100 mg PO QDAC [facility] Stop: 02/06/19 07:29 Last Admin: 12/10/18 06:32 Dose: Not Given Sodium Phosphate (Fleet Enema) 135 ml RC DAILY PRN PRN Reason: Constipation Stop: 02/06/19 02:58 Spironolactone (Aldactone) 50 mg PO BID [facility] Stop: 02/07/19 08:59 Last Admin: 12/10/18 09:49 Dose: Not Given General: Alert HEENT: Mucous membr. moist/pink Neck: Supple, JVD (flat) Cardiovascular: Regular rate Lungs: Other (basilar rales) Abdomen: Bowel sounds, Soft, no Tender, no Hepatomegaly, no Splenomegaly, no Distended, no Rebound, no Mass Extremities: Pulses (normal) Neurological: Normal gait Skin: no Rash, no Breakdown, no Significant lesion, no Other Assessment/Plan - Assessment Assessment: # Cirrhosis, secondary to hx of alcohol use in the past # Chronic anemia # CHF # COPD Anemia is multifactorial, but I doubt active GI bleed given there is nothing overt and FOB is negative. She has had this worked up already at [facility] in 05/2016, and EGD showed mild GAVE, no varices. Philo was normal without pathology. Hepatic encephalopathy appears better with lactulose/rifaximin. Plan: - no endoscopy unless overt bleed. See above - cont rifaxmin/lactulose - trend hgb, transfuse as needed - trend LFTs - low Na diet - mgmt of her CHF and sepsis as per other consultants
--- NOTE | 2018-12-10 15:47 | Cardiology ---
12/09/[address] Timoteo Christian. PROCEDURE: Echocardiogram. M-MODE ECHOCARDIOGRAM: Mitral valve, anterior leaflet of mitral valve shows normal excursion, EF velocity. Posterior leaflet of the mitral valve shows normal excursion. Left ventricular posterior wall shows increased thickness, normal excursion. Interventricular septum shows increased thickness, normal excursion. There is hypertrophy of the left ventricle, ejection fraction 76%. Left atrium normal. Aortic root shows normal dimension, normal excursion of aortic leaflets. CONCLUSION: Hypertrophy of the left ventricle, ejection fraction 76%. 2D ECHO: Long axis view showed normal sized left ventricle with hypertrophy of the left ventricle. Left atrium normal. Aortic root shows normal dimension, normal excursion of aortic leaflets. Short axis view of mitral valve normal. Short axis view of aortic valve normal. Apical four chamber view showed normal sized left ventricle with hypertrophy of the left ventricle. Left atrium normal. Right ventricular cavity, right atrium normal, no pericardial effusion. CONCLUSION: Hypertrophy of the left ventricle, ejection fraction 76% with pleural effusion. Doppler study shows moderate mitral regurgitation, moderate tricuspid regurgitation, right ventricular systolic pressure 64 mmHg with [id number] pulmonary hypertension. JOB# [id number]
--- NOTE | 2018-12-10 16:45 | General Progress Note ---
Subjective - Review of Systems Service Date: 12/10/18 Subjective: no new sxs Objective - Results Result Diagrams: 12/10/18 04:45 12/10/18 04:45 Recent Labs: Laboratory Last Values WBC 7.9 Th/cmm (4.8-10.8) D 12/10/18 04:45 RBC 3.13 Mil/cmm (3.80-5.20) L 12/10/18 04:45 Hgb 10.3 gm/dL (12-16) L 12/10/18 04:45 Hct 30.9 % (41.0-60) L 12/10/18 04:45 MCV 98.5 fl (81-100) 12/10/18 04:45 MCH 32.8 pg (27.0-31.0) H 12/10/18 04:45 MCHC Differential 33.3 pg (28.0-36.0) 12/10/18 04:45 RDW 23.3 % (11.5-20.0) H 12/10/18 04:45 Plt Count 111 Th/cmm (150-400) L 12/10/18 04:45 MPV 9.8 fl 12/10/18 04:45 Add Manual Diff YES 12/08/18 05:05 Neutrophils % 75.3 % (40.0-80.0) 12/10/18 04:45 Band Neutrophils % 0 % (0-10) 12/07/18 20:37 Lymphocytes % 9.6 % (20.0-50.0) L 12/10/18 04:45 Monocytes % 13.0 % (2.0-10.0) H 12/10/18 04:45 Eosinophils % 1.3 % (0.0-5.0) 12/10/18 04:45 Basophils % 0.8 % (0.0-2.0) 12/10/18 04:45 Neutrophils (Manual) 78 % (40-80) 12/08/18 05:05 Lymphocytes 7 % (20-50) L 12/08/18 05:05 Monocytes 11 % (2-10) H 12/08/18 05:05 Eosinophils 4 % (0-5) 12/08/18 05:05 Basophils 0 % (0-3) 12/07/18 20:37 Platelet Estimate ADEQUATE (NORMAL) 12/08/18 05:05 Macrocytosis 1+ 12/08/18 05:05 Total Retics Counted 5.4 % (0.5-1.5) H 12/08/18 17:45 Absolute Retic 126.9 Th/cmm 12/08/18 17:45 Corrected Retic Count 3.0 % (0.5-1.5) H 12/08/18 17:45 PT 12.6 SECONDS (9.5-11.5) H 12/10/18 05:45 INR 1.22 (0.5-1.4) 12/10/18 05:45 PTT (Actin FS) 29.6 SECONDS (26.0-38.0) 12/10/18 05:45 Sodium 145 mEq/L (136-145) 12/10/18 04:45 Potassium 5.1 mEq/L (3.5-5.1) 12/10/18 04:45 Chloride 112 mEq/L (98-107) H 12/10/18 04:45 Carbon Dioxide 27.5 mEq/L (21.0-31.0) 12/10/18 04:45 Anion Gap 10.6 (7.0-16.0) 12/10/18 04:45 BUN 29 mg/dL (7-25) H 12/10/18 04:45 Creatinine 1.0 mg/dL (0.6-1.2) 12/10/18 04:45 Est GFR ( Amer) > 60.0 ml/min (>90) 12/10/18 04:45 Est GFR (Non-Af Amer) 58.3 ml/min 12/10/18 04:45 BUN/Creatinine Ratio 29.0 12/10/18 04:45 Glucose 173 mg/dL (70-105) H 12/10/18 04:45 POC Glucose 123 MG/DL (70 - 105) H 12/10/18 12:14 Calcium 8.1 mg/dL (8.6-10.3) L 12/10/18 04:45 Iron 38 ug/dL (27-139) 12/08/18 17:45 TIBC 160 ug/dL (250-450) L 12/08/18 17:45 Iron Saturation 24 % (15-55) 12/08/18 17:45 Unsaturated IBC 122 ug/dL (118-369) 12/08/18 17:45 Erythropoietin 45.7 mIU/mL (2.6-18.5) H 12/08/18 17:45 Ferritin 130 ng/mL (15-150) 12/08/18 17:45 Total Bilirubin 1.0 mg/dL (0.3-1.0) 12/10/18 04:45 AST 51 U/L (13-39) H 12/10/18 04:45 ALT 40 U/L (7-52) 12/10/18 04:45 Alkaline Phosphatase 165 U/L (34-104) H 12/10/18 04:45 Ammonia 68 umol/L (16-53) H 12/08/18 05:05 Troponin I 0.03 ng/mL (0.01-0.05) 12/07/18 20:37 B-Natriuretic Peptide 748.0 pg/mL (5.0-100.0) H 12/10/18 04:45 Total Protein 5.7 gm/dL (6.0-8.3) L 12/10/18 04:45 Albumin 2.4 gm/dL (3.7-5.3) L 12/10/18 04:45 Globulin 3.3 gm/dL 12/10/18 04:45 Albumin/Globulin Ratio 0.7 (1.0-1.8) L 12/10/18 04:45 LDL Cholesterol Direct 72 mg/dL (75-193) L 12/08/18 17:45 Tumor Marker AFP 1.7 ng/mL (0.0-8.3) 12/08/18 05:05 Vitamin B12 >1999 pg/mL (232-1245) H 12/09/18 04:50 Folic Acid >20.0 ng/mL (>3.0) 12/09/18 04:50 Urine Source CLEAN C 12/07/18 21:10 Urine Color YELLOW 12/07/18 21:10 Urine Clarity HAZY (CLEAR) 12/07/18 21:10 Urine pH 6.0 (4.6 - 8.0) 12/07/18 21:10 Ur Specific [place] 1.025 (1.005-1.030) 12/07/18 21:10 Urine Protein NEGATIVE mg/dL (NEGATIVE) 12/07/18 21:10 Urine Glucose (UA) NEGATIVE mg/dL (NEGATIVE) 12/07/18 21:10 Urine Ketones NEGATIVE mg/dL (NEGATIVE) 12/07/18 21:10 Urine Blood TRACE (NEGATIVE) 12/07/18 21:10 Urine Nitrate NEGATIVE (NEGATIVE) 12/07/18 21:10 Urine Bilirubin NEGATIVE (NEGATIVE) 12/07/18 21:10 Urine Urobilinogen 0.2 E.U./dL (0.2 - 1.0) 12/07/18 21:10 Ur Leukocyte Esterase SMALL (NEGATIVE) H 12/07/18 21:10 Urine RBC 0-2 /hpf (0-5) 12/07/18 21:10 Urine WBC 10-25 /hpf (0-5) H 12/07/18 21:10 Ur Epithelial Cells FEW /lpf (FEW) 12/07/18 21:10 Urine Bacteria MODERATE /hpf (NONE SEEN) H 12/07/18 21:10 Fluid Glucose 188.0 mg/dL 12/10/18 11:10 Fluid Total Protein < 3.0 g/dL 12/10/18 11:10 Stool Occult Blood NEGATIVE (NEGATIVE) 12/09/18 10:45 Influenza A (Rapid) NEG FOR INF A 12/07/18 22:35 Influenza B (Rapid) NEG FOR INF B 12/07/18 22:35 Blood Type O POSITIVE 12/08/18 17:45 Antibody Screen NEGATIVE 12/08/18 17:45 Crossmatch See Detail 12/08/18 17:45 - Physical Exam Vitals and I&O: Vital Signs Temp 98.5 F 12/10/18 15:51 Pulse 66 12/10/18 15:51 Resp 18 12/10/18 15:51 BP 141/30 12/10/18 15:51 Pulse Ox 100 12/10/18 15:51 Intake & Output 12/09/18 12/10/18 12/10/18 18:59 06:59 18:59 Intake Total 400 200 Output Total 4 Balance 396 200 Weight (lbs) 50.349 kg 50.349 kg Intake: Intake, IV Amount 50 50 cefTRIAXone 1 gm In 50 50 Sodium Chloride 0.9% 50 ml @ 100 mls/hr IV Q12HR YARI Rx#:[id number] Oral 350 150 Output: Stool 4 Other: # Voids 4 # Bowel Movements 3 Stool Characteristics Liquid Liquid Soft Brown Brown Brown Weight Source Bedscale Bedscale Active Medications: Current Medications Acetaminophen (Tylenol) 650 mg PO Q4HR PRN PRN Reason: Pain or Fever >101 Stop: 02/06/19 02:58 Artificial Tears (Artificial Tears Ophth Soln) 1 drop EACH EYE BID [facility] Stop: 02/06/19 08:59 Last Admin: 12/10/18 09:40 Dose: 1 drop Aspirin (Aspirin Chewable) 81 mg PO DAILY [facility] Stop: 02/06/19 08:59 Last Admin: 12/10/18 09:50 Dose: Not Given Bisacodyl (Dulcolax 10 Mg Supp) 10 mg RC DAILY PRN PRN Reason: Constipation Stop: 02/06/19 02:58 Brimonidine Tartrate (Alphagan 0.2% Ophth Soln) 1 drop RIGHT EYE BID [facility] Stop: 02/06/19 08:59 Last Admin: 12/10/18 09:40 Dose: 1 drop Docusate Sodium (Colace) 100 mg PO BID [facility] Stop: 02/06/19 08:59 Last Admin: 12/10/18 09:40 Dose: Not Given Ferrous Sulfate (Iron) 325 mg PO DAILY [facility] Stop: 02/06/19 08:59 Last Admin: 12/10/18 09:40 Dose: Not Given Folic Acid (Folate) 2 mg PO DAILY [facility] Stop: 02/06/19 08:59 Last Admin: 12/10/18 09:40 Dose: Not Given Furosemide (Lasix) 20 mg PO DAILY [facility] Stop: 02/07/19 08:59 Last Admin: 12/10/18 09:40 Dose: Not Given Glimepiride (Amaryl) 8 mg PO DAILY [facility] Stop: 02/06/19 08:59 Last Admin: 12/10/18 09:44 Dose: Not Given Ceftriaxone Sodium 1 gm/ (Sodium Chloride) 50 mls @ 100 mls/hr IV Q12HR [facility] Stop: 02/06/19 13:59 Last Admin: 12/10/18 09:39 Dose: 100 mls/hr Insulin Aspart (Novolog Insulin Sliding Scale) 0 units SUBQ ACHS [facility]; Protocol Stop: 02/06/19 20:59 Last Admin: 12/10/18 12:16 Dose: Not Given Lactulose (Cephulac) 40 gm PO QID [facility] Stop: 02/06/19 08:59 Last Admin: 12/10/18 12:31 Dose: 40 gm Latanoprost (Xalatan 0.005% Ophth Soln) 1 drop EACH EYE HS [facility] Stop: 02/06/19 20:59 Last Admin: 12/09/18 21:02 Dose: 1 drop Levothyroxine Sodium (Synthroid) 0.2 mg PO QDAC [facility] Stop: 02/06/19 07:29 Last Admin: 12/10/18 06:31 Dose: Not Given Losartan Potassium (Cozaar) 25 mg PO DAILY [facility] Stop: 02/06/19 08:59 Last Admin: 12/10/18 09:49 Dose: Not Given Magnesium Hydroxide (Milk Of Magnesia) 30 ml PO DAILY PRN PRN Reason: Constipation Stop: 02/06/19 02:58 Metoprolol Tartrate (Lopressor) 25 mg PO BID [facility] Stop: 02/06/19 08:59 Last Admin: 12/10/18 09:49 Dose: Not Given Ondansetron HCl (Zofran Odt) 4 mg PO Q8H [facility] Stop: 02/06/19 02:59 Last Admin: 12/10/18 12:31 Dose: 4 mg Pantoprazole Sodium (Protonix) 40 mg PO QDAC [facility] Stop: 02/06/19 07:29 Last Admin: 12/10/18 06:32 Dose: Not Given Rifaximin (Xifaxan) 550 mg PO BID [facility] Stop: 02/06/19 08:59 Last Admin: 12/10/18 09:49 Dose: Not Given Sitagliptin Phosphate (Januvia) 100 mg PO QDAC [facility] Stop: 02/06/19 07:29 Last Admin: 12/10/18 06:32 Dose: Not Given Sodium Phosphate (Fleet Enema) 135 ml RC DAILY PRN PRN Reason: Constipation Stop: 02/06/19 02:58 Spironolactone (Aldactone) 50 mg PO BID [facility] Stop: 02/07/19 08:59 Last Admin: 12/10/18 09:49 Dose: Not Given General: Alert HEENT: Mucous membr. moist/pink Neck: Supple, JVD (flat) Cardiovascular: Regular rate Lungs: Other (basilar rales) Abdomen: Bowel sounds, Soft, no Tender, no Hepatomegaly, no Splenomegaly, no Distended, no Rebound, no Mass Extremities: Pulses (normal) Neurological: Normal gait Skin: no Rash, no Breakdown, no Significant lesion, no Other Assessment/Plan - Assessment Assessment: 12/10/18: Spleen size normal. will obtain nuclear medicine scar. nodular cirrhotic liver.. check stool OB. iron studies and b12 normal. may need BM Bx to eval for MDS Macrocytic anemia on presentation, most consistent with anemia of liver disease. 2. 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 PLAN: I will obtain abdominal ultrasound and obtain comprehensive anemia workup including iron studies, B12, and folate level and stool occult blood. Urinalysis from admission showed no evidence of microscopic hematuria. The patient was transfused 1 unit of packed red blood cells on 12/08/2018. Nutritional Asmnt/Malnutr-PDOC - Dietary Evaluation Malnutrition Findings (Please click <Entered> for more info): Nutritional Asmnt/Malnutrition Start: 12/09/18 15: 06 Text: Status: Complete Freq: Protocol: Document 12/09/18 15:07 LCHENG (Rec: 12/09/18 15:23 [email or web address]) Nutritional Asmnt/Malnutrition Patient General Information Nutritional Screening High Risk Diagnosis dehydration, anemia Pertinent Medical Hx/Surgical Hx HTN, Dm, CHF, asthma/COPD, thyroid disorder, blindness, cirrhosis, hernia Subjective Information Pt seen sleeping in bed at time of visit, [place] speaking noted. Per FOLLOW UP REP, pt has poor PO intake d/t no appetite and stomach up set. PO intake 0-25% on 12/08. Pt was on NPO d/t shceduled U/S today. Current Diet Order/ Nutrition Support NPO. was on [facility] soft chopped [facility] Pertinent Medications colace, iron, folate, lasix, novolog, synthroid, zofran, protonix, januvia Pertinent Labs 12/09 Na 148, K 5.4, Cl 117, Gluocse 177, POC 137-180 2 K 5.5, Cl 114, Glucose 91, POC 79-243, Ca 8.3 Nutritional Hx/Data Height 1.55 m Height (Calculated Centimeters) 154.9 Current Weight (lbs) 50.349 kg Weight (Calculated Kilograms) 50.3 Weight (Calculated Grams) 36534.8 [place] Body Weight 105 Body Mass Index (BMI) 20.9 Weight Status Approriate GI Symptoms GI Symptoms None Last BM 2/4 x 2 Difficult in: None Skin Integrity/Comment: pressure area reddened to sacral Current %PO Negligible < 25% Estimated Nutritional Goals BEE in Kcals: Using Current wt Calories/Kcals/Kg 25-30 Kcals Calculated 4504-0837 Protein: Using Current wt Protein g/k Protein Calculated 50 Fluid: ml 1250-1500ml (1ml/kcal) Nutritional Problem 2. Problem Problem altered nutrition related labs Etiology possible renal dysfunction, hyperglycemia Signs/Symptoms: K 5.4-5.5, Gluocse 177, POC 137-180 1. Problem Problem inadequate food intake Etiology poor appetite and stomach upset Signs/Symptoms: PO intake 0-25% Intervention/Recommendation Comments 1. Continue with mech soft chopped ALEK CCHO diet as ordered. consider adding renal diet if K continue elevated. 2. Add Glucerna TID for extra kcal and protein d/t poor appetite. 3. Monitor PO intake, wt, labs and skin integrity 4. F/U as high risk in 2-3 days Expected Outcomes/Goals Expected Outcomes/Goals 1. PO intake improved to meet at least 75% of nutritional needs. 2. Wt stability, skin to remain intact, labs to approach WNL.
--- NOTE | 2018-12-11 | Infectious Disease Prog Note ---
Infectious Disease Subjective - Review of Systems Service Date: 12/10/18 Events since last encounter: Thoracentesis was performed. Subjective: No new change, no fever. Infectious Disease Objective - Results Result Diagrams: 12/10/18 04:45 12/10/18 04:45 Recent Labs: Laboratory Last Values WBC 7.9 Th/cmm (4.8-10.8) D 12/10/18 04:45 RBC 3.13 Mil/cmm (3.80-5.20) L 12/10/18 04:45 Hgb 10.3 gm/dL (12-16) L 12/10/18 04:45 Hct 30.9 % (41.0-60) L 12/10/18 04:45 MCV 98.5 fl (81-100) 12/10/18 04:45 MCH 32.8 pg (27.0-31.0) H 12/10/18 04:45 MCHC Differential 33.3 pg (28.0-36.0) 12/10/18 04:45 RDW 23.3 % (11.5-20.0) H 12/10/18 04:45 Plt Count 111 Th/cmm (150-400) L 12/10/18 04:45 MPV 9.8 fl 12/10/18 04:45 Add Manual Diff YES 12/08/18 05:05 Neutrophils % 75.3 % (40.0-80.0) 12/10/18 04:45 Band Neutrophils % 0 % (0-10) 12/07/18 20:37 Lymphocytes % 9.6 % (20.0-50.0) L 12/10/18 04:45 Monocytes % 13.0 % (2.0-10.0) H 12/10/18 04:45 Eosinophils % 1.3 % (0.0-5.0) 12/10/18 04:45 Basophils % 0.8 % (0.0-2.0) 12/10/18 04:45 Neutrophils (Manual) 78 % (40-80) 12/08/18 05:05 Lymphocytes 7 % (20-50) L 12/08/18 05:05 Monocytes 11 % (2-10) H 12/08/18 05:05 Eosinophils 4 % (0-5) 12/08/18 05:05 Basophils 0 % (0-3) 12/07/18 20:37 Platelet Estimate ADEQUATE (NORMAL) 12/08/18 05:05 Macrocytosis 1+ 12/08/18 05:05 Total Retics Counted 5.4 % (0.5-1.5) H 12/08/18 17:45 Absolute Retic 126.9 Th/cmm 12/08/18 17:45 Corrected Retic Count 3.0 % (0.5-1.5) H 12/08/18 17:45 PT 12.6 SECONDS (9.5-11.5) H 12/10/18 05:45 INR 1.22 (0.5-1.4) 12/10/18 05:45 PTT (Actin FS) 29.6 SECONDS (26.0-38.0) 12/10/18 05:45 Sodium 145 mEq/L (136-145) 12/10/18 04:45 Potassium 5.1 mEq/L (3.5-5.1) 12/10/18 04:45 Chloride 112 mEq/L (98-107) H 12/10/18 04:45 Carbon Dioxide 27.5 mEq/L (21.0-31.0) 12/10/18 04:45 Anion Gap 10.6 (7.0-16.0) 12/10/18 04:45 BUN 29 mg/dL (7-25) H 12/10/18 04:45 Creatinine 1.0 mg/dL (0.6-1.2) 12/10/18 04:45 Est GFR ( Amer) > 60.0 ml/min (>90) 12/10/18 04:45 Est GFR (Non-Af Amer) 58.3 ml/min 12/10/18 04:45 BUN/Creatinine Ratio 29.0 12/10/18 04:45 Glucose 173 mg/dL (70-105) H 12/10/18 04:45 POC Glucose 127 MG/DL (70 - 105) H 12/10/18 20:37 Calcium 8.1 mg/dL (8.6-10.3) L 12/10/18 04:45 Iron 38 ug/dL (27-139) 12/08/18 17:45 TIBC 160 ug/dL (250-450) L 12/08/18 17:45 Iron Saturation 24 % (15-55) 12/08/18 17:45 Unsaturated IBC 122 ug/dL (118-369) 12/08/18 17:45 Erythropoietin 45.7 mIU/mL (2.6-18.5) H 12/08/18 17:45 Ferritin 130 ng/mL (15-150) 12/08/18 17:45 Total Bilirubin 1.0 mg/dL (0.3-1.0) 12/10/18 04:45 AST 51 U/L (13-39) H 12/10/18 04:45 ALT 40 U/L (7-52) 12/10/18 04:45 Alkaline Phosphatase 165 U/L (34-104) H 12/10/18 04:45 Ammonia 68 umol/L (16-53) H 12/08/18 05:05 Troponin I 0.03 ng/mL (0.01-0.05) 12/07/18 20:37 B-Natriuretic Peptide 748.0 pg/mL (5.0-100.0) H 12/10/18 04:45 Total Protein 5.7 gm/dL (6.0-8.3) L 12/10/18 04:45 Albumin 2.4 gm/dL (3.7-5.3) L 12/10/18 04:45 Globulin 3.3 gm/dL 12/10/18 04:45 Albumin/Globulin Ratio 0.7 (1.0-1.8) L 12/10/18 04:45 LDL Cholesterol Direct 72 mg/dL (75-193) L 12/08/18 17:45 Tumor Marker AFP 1.7 ng/mL (0.0-8.3) 12/08/18 05:05 Vitamin B12 >1999 pg/mL (232-1245) H 12/09/18 04:50 Folic Acid >20.0 ng/mL (>3.0) 12/09/18 04:50 Urine Source CLEAN C 12/07/18 21:10 Urine Color YELLOW 12/07/18 21:10 Urine Clarity HAZY (CLEAR) 12/07/18 21:10 Urine pH 6.0 (4.6 - 8.0) 12/07/18 21:10 Ur Specific [place] 1.025 (1.005-1.030) 12/07/18 21:10 Urine Protein NEGATIVE mg/dL (NEGATIVE) 12/07/18 21:10 Urine Glucose (UA) NEGATIVE mg/dL (NEGATIVE) 12/07/18 21:10 Urine Ketones NEGATIVE mg/dL (NEGATIVE) 12/07/18 21:10 Urine Blood TRACE (NEGATIVE) 12/07/18 21:10 Urine Nitrate NEGATIVE (NEGATIVE) 12/07/18 21:10 Urine Bilirubin NEGATIVE (NEGATIVE) 12/07/18 21:10 Urine Urobilinogen 0.2 E.U./dL (0.2 - 1.0) 12/07/18 21:10 Ur Leukocyte Esterase SMALL (NEGATIVE) H 12/07/18 21:10 Urine RBC 0-2 /hpf (0-5) 12/07/18 21:10 Urine WBC 10-25 /hpf (0-5) H 12/07/18 21:10 Ur Epithelial Cells FEW /lpf (FEW) 12/07/18 21:10 Urine Bacteria MODERATE /hpf (NONE SEEN) H 12/07/18 21:10 Fluid Glucose 188.0 mg/dL 12/10/18 11:10 Fluid Total Protein < 3.0 g/dL 12/10/18 11:10 Stool Occult Blood NEGATIVE (NEGATIVE) 12/09/18 10:45 Influenza A (Rapid) NEG FOR INF A 12/07/18 22:35 Influenza B (Rapid) NEG FOR INF B 12/07/18 22:35 Blood Type O POSITIVE 12/08/18 17:45 Antibody Screen NEGATIVE 12/08/18 17:45 Crossmatch See Detail 12/08/18 17:45 - Physical Exam Vitals and I&O: Vital Signs Temp 98.2 F 12/10/18 20:00 Pulse 62 12/10/18 20:00 Resp 18 12/10/18 20:13 BP 133/57 12/10/18 20:00 Pulse Ox 100 12/10/18 20:00 Intake & Output 12/10/18 12/10/18 12/11/18 06:59 18:59 06:59 Intake Total 200 1700 Output Total 1300 Balance 200 400 Weight (lbs) 50.349 kg 51.301 kg Intake: Intake, IV Amount 50 50 cefTRIAXone 1 gm In 50 50 Sodium Chloride 0.9% 50 ml @ 100 mls/hr IV Q12HR [facility] Rx#:[id number] Oral 150 1650 Output: Other 1300 Other: # Voids 4 4 # Bowel Movements 3 2 Stool Characteristics Liquid Soft Soft Brown Brown Brown Weight Source Bedscale Bedscale Active Medications: Current Medications Acetaminophen (Tylenol) 650 mg PO Q4HR PRN PRN Reason: Pain or Fever >101 Stop: 02/06/19 02:58 Artificial Tears (Artificial Tears Ophth Soln) 1 drop EACH EYE BID [facility] Stop: 02/06/19 08:59 Last Admin: 12/10/18 17:42 Dose: 1 drop Aspirin (Aspirin Chewable) 81 mg PO DAILY [facility] Stop: 02/06/19 08:59 Last Admin: 12/10/18 09:50 Dose: Not Given Bisacodyl (Dulcolax 10 Mg Supp) 10 mg RC DAILY PRN PRN Reason: Constipation Stop: 02/06/19 02:58 Brimonidine Tartrate (Alphagan 0.2% Ophth Soln) 1 drop RIGHT EYE BID [facility] Stop: 02/06/19 08:59 Last Admin: 12/10/18 17:42 Dose: 1 drop Docusate Sodium (Colace) 100 mg PO BID [facility] Stop: 02/06/19 08:59 Last Admin: 12/10/18 17:41 Dose: 100 mg Ferrous Sulfate (Iron) 325 mg PO DAILY [facility] Stop: 02/06/19 08:59 Last Admin: 12/10/18 09:40 Dose: Not Given Folic Acid (Folate) 2 mg PO DAILY [facility] Stop: 02/06/19 08:59 Last Admin: 12/10/18 09:40 Dose: Not Given Furosemide (Lasix) 20 mg PO DAILY [facility] Stop: 02/07/19 08:59 Last Admin: 12/10/18 09:40 Dose: Not Given Glimepiride (Amaryl) 8 mg PO DAILY [facility] Stop: 02/06/19 08:59 Last Admin: 12/10/18 09:44 Dose: Not Given Ceftriaxone Sodium 1 gm/ (Sodium Chloride) 50 mls @ 100 mls/hr IV Q12HR [facility] Stop: 02/06/19 13:59 Last Admin: 12/10/18 20:47 Dose: 100 mls/hr Insulin Aspart (Novolog Insulin Sliding Scale) 0 units SUBQ ACHS [facility]; Protocol Stop: 02/06/19 20:59 Last Admin: 12/10/18 20:48 Dose: Not Given Lactulose (Cephulac) 40 gm PO QID [facility] Stop: 02/06/19 08:59 Last Admin: 12/10/18 20:47 Dose: 40 gm Latanoprost (Xalatan 0.005% Ophth Soln) 1 drop EACH EYE HS [facility] Stop: 02/06/19 20:59 Last Admin: 12/10/18 20:47 Dose: 1 drop Levothyroxine Sodium (Synthroid) 0.2 mg PO QDAC [facility] Stop: 02/06/19 07:29 Last Admin: 12/10/18 06:31 Dose: Not Given Losartan Potassium (Cozaar) 25 mg PO DAILY [facility] Stop: 02/06/19 08:59 Last Admin: 12/10/18 09:49 Dose: Not Given Magnesium Hydroxide (Milk Of Magnesia) 30 ml PO DAILY PRN PRN Reason: Constipation Stop: 02/06/19 02:58 Metoprolol Tartrate (Lopressor) 25 mg PO BID [facility] Stop: 02/06/19 08:59 Last Admin: 12/10/18 17:41 Dose: 25 mg Ondansetron HCl (Zofran Odt) 4 mg PO Q8H [facility] Stop: 02/06/19 02:59 Last Admin: 12/10/18 18:53 Dose: Not Given Pantoprazole Sodium (Protonix) 40 mg PO QDAC [facility] Stop: 02/06/19 07:29 Last Admin: 12/10/18 06:32 Dose: Not Given Rifaximin (Xifaxan) 550 mg PO BID [facility] Stop: 02/06/19 08:59 Last Admin: 12/10/18 17:40 Dose: 550 mg Sitagliptin Phosphate (Januvia) 100 mg PO QDAC [facility] Stop: 02/06/19 07:29 Last Admin: 12/10/18 06:32 Dose: Not Given Sodium Phosphate (Fleet Enema) 135 ml RC DAILY PRN PRN Reason: Constipation Stop: 02/06/19 02:58 Spironolactone (Aldactone) 50 mg PO BID [facility] Stop: 02/07/19 08:59 Last Admin: 12/10/18 17:41 Dose: 50 mg General: no acute distress, cachectic HEENT: atraumatic, normocephalic, PERRLA, EOMI, moist mucous membrane Neck: supple, no thyromegaly Cardiovascular: S1S2, regular Lungs: clear to auscultation bilaterally, clear to percussion, other (devreased bs) Abdomen: soft, no tender, no distended Extremities: no cyanosis, no clubbing, no edema Neurological: awake, alert Skin: other (gluteal wouns.) Infectious Disease Assmt/Plan - Assessment Assessment: 1. Anemia likely 2/2 cirrhosis.? MDS. 2. Dehydration. 3. Liver cirrhosis. 4. Metabolic, hepatic encephalopathy. 5. Pneumonia, bilateral pleural effusion. 6. CHF. 7. Right eye blindness. 8. Staph bacteremia. 9. gluteal Wounds. 10. UTI - Plan Plan: Will continue same treatment. Consultation by Dr Colleen Christian, Dr bartlett appreciated. GI consult and hemalology consult appreciated. Anemia w/u. One unit of PRBC transfused ( 12/08/2018) stool for occult blood. Vanco IV , change rocepin to levaquin. Wound care. Repeat blood cs. LTAC eval after anemia w/u completed by Dr Glass. ?BM Bx Nutritional Asmnt/Malnutr-PDOC - Dietary Evaluation Malnutrition Findings (Please click <Entered> for more info): Nutritional Asmnt/Malnutrition Start: 12/09/18 15: 06 Text: Status: Complete Freq: Protocol: Document 12/09/18 15:07 LCHENG (Rec: 12/09/18 15:23 [email or web address] [id number]) Nutritional Asmnt/Malnutrition Patient General Information Nutritional Screening High Risk Diagnosis dehydration, anemia Pertinent Medical Hx/Surgical Hx HTN, Dm, CHF, asthma/COPD, thyroid disorder, blindness, cirrhosis, hernia Subjective Information Pt seen sleeping in bed at time of visit, Ukrainian speaking noted. Per [employer], pt has poor PO intake d/t no appetite and stomach up set. PO intake 0-25% on 12/08. Pt was on NPO d/t shceduled U/S today. Current Diet Order/ Nutrition Support NPO. was on [facility] soft chopped ALEK, CCHO Pertinent Medications colace, iron, folate, lasix, novolog, synthroid, zofran, protonix, januvia Pertinent Labs 12/09 Na 148, K 5.4, Cl 117, Gluocse 177, POC 137-180 2/3 K 5.5, Cl 114, Glucose 91, POC 79-243, Ca 8.3 Nutritional Hx/Data Height 1.55 m Height (Calculated Centimeters) 154.9 Current Weight (lbs) 50.349 kg Weight (Calculated Kilograms) 50.3 Weight (Calculated Grams) 98231.8 [place] Body Weight 105 Body Mass Index (BMI) 20.9 Weight Status Approriate GI Symptoms GI Symptoms None Last BM 2/4 x 2 Difficult in: None Skin Integrity/Comment: pressure area reddened to sacral Current %PO Negligible < 25% Estimated Nutritional Goals BEE in Kcals: Using Current wt Calories/Kcals/Kg 25-30 Kcals Calculated 5697-5939 Protein: Using Current wt Protein g/k Protein Calculated 50 Fluid: ml 1250-1500ml (1ml/kcal) Nutritional Problem 2. Problem Problem altered nutrition related labs Etiology possible renal dysfunction, hyperglycemia Signs/Symptoms: K 5.4-5.5, Gluocse 177, POC 137-180 1. Problem Problem inadequate food intake Etiology poor appetite and stomach upset Signs/Symptoms: PO intake 0-25% Intervention/Recommendation Comments 1. Continue with mech soft chopped ALEK CCHO diet as ordered. consider adding renal diet if K continue elevated. 2. Add Glucerna TID for extra kcal and protein d/t poor appetite. 3. Monitor PO intake, wt, labs and skin integrity 4. F/U as high risk in 2-3 days Expected Outcomes/Goals Expected Outcomes/Goals 1. PO intake improved to meet at least 75% of nutritional needs. 2. Wt stability, skin to remain intact, labs to approach WNL.
[2018-12-11] MEDS ORDERED: Levofloxacin 500mg/100mL 500 MG/100 ML BAG IV ONE (02:00)
[2018-12-11] MEDS: Pantoprazole 40 mg EC Tab PO SCH (06:42)
[2018-12-11] MEDS: Levothyroxine 0.1 Mg Tab PO SCH (06:42)
[2018-12-11 06:51] LABS: ALB/GLOB RATIO 0.7 (1.0-1.8); ALBUMIN 2.4 gm/dL (3.7-5.3); ALKALINE PHOSPHATASE 176 U/L (34-104); ANION GAP 10.7 (7.0-16.0); BILIRUBIN,TOTAL 1.1 mg/dL (0.3-1.0); BUN - UREA NITROGEN 30 mg/dL (7-25); CALCIUM SERUM 8.7 mg/dL (8.6-10.3); CARBON DIOXIDE 26.1 mEq/L (21.0-31.0); CHLORIDE 111 mEq/L (98-107); CREATININE - SERUM 0.9 mg/dL (0.6-1.2); GFR AFRICAN-AMERICAN > 60.0 ml/min (>90); GFR NON AFRICAN-AMERICAN > 60.0 ml/min; GLUCOSE 113 mg/dL (70-105); POTASSIUM SERUM 4.8 mEq/L (3.5-5.1); SGOT 59 U/L (13-39); SGPT/ALT 43 U/L (7-52); SODIUM SERUM 143 mEq/L (136-145); TOTAL PROTEIN,SERUM 5.9 gm/dL (6.0-8.3)
[2018-12-11] MEDS: INSULIN ASPART SLIDING SCALE 100 UNITS/ML UNIT SUBQ SCH ×2 (07:09→12:23)
[2018-12-11 07:35] LABS: HEMATOCRIT 30.5 % (41.0-60); HEMOGLOBIN 10.1 gm/dL (12-16); MEAN CELL VOLUME 98.4 fl (81-100); MEAN CORPUSCULAR HEMOGLOBIN 32.6 pg (27.0-31.0); MEAN CORPUSCULAR HGB CONC 33.1 pg (28.0-36.0); MEAN PLATELET VOLUME 10.6 fl; PLATELET COUNT 103 Th/cmm (150-400); RED CELL DISTRIBUTION WIDTH 22.5 % (11.5-20.0); WHITE BLOOD COUNT 6.1 Th/cmm (4.8-10.8)
[2018-12-11 08:35] LABS: BAND NEUTROPHILE 1 % (0-10); BASOPHIL 0 % (0-3); EOSINOPHIL 0 % (0-5); LYMPHOCYTE 9 % (20-50); MONOCYTE 6 % (2-10); NEUTROPHILS 84 % (40-80)
[2018-12-11 08:36] LABS: ANISOCYTOSIS 1+
[2018-12-11] MEDS: Multivitamin w/ Minerals Tab PO SCH (08:40)
[2018-12-11] MEDS: Ferrous Sulfate 325 MG TAB PO SCH (08:40)
[2018-12-11] MEDS: Aspirin 81mg Chewable Tab PO SCH (08:42)
[2018-12-11] MEDS: Polyvinyl Alcohol Ophth Soln 15 mL Bottle EACH EYE SCH ×2 (08:43→16:30)
[2018-12-11] MEDS: Lactulose 10 Gm/15 mL 30mL UDC PO SCH ×3 (08:43→16:32)
--- NOTE | 2018-12-11 09:58 | Infectious Disease Prog Note ---
Infectious Disease Subjective - Review of Systems Service Date: 12/11/18 Subjective: No new change, no fever. Infectious Disease Objective - Results Result Diagrams: 12/11/18 07:20 12/11/18 05:03 Recent Labs: Laboratory Last Values WBC 6.1 Th/cmm (4.8-10.8) 12/11/18 07:20 RBC 3.10 Mil/cmm (3.80-5.20) L 12/11/18 07:20 Hgb 10.1 gm/dL (12-16) L 12/11/18 07:20 Hct 30.5 % (41.0-60) L 12/11/18 07:20 MCV 98.4 fl (81-100) 12/11/18 07:20 MCH 32.6 pg (27.0-31.0) H 12/11/18 07:20 MCHC Differential 33.1 pg (28.0-36.0) 12/11/18 07:20 RDW 22.5 % (11.5-20.0) H 12/11/18 07:20 Plt Count 103 Th/cmm (150-400) L 12/11/18 07:20 MPV 10.6 fl 12/11/18 07:20 Add Manual Diff YES 12/11/18 07:20 Neutrophils % 75.3 % (40.0-80.0) 12/10/18 04:45 Band Neutrophils % 1 % (0-10) 12/11/18 07:20 Lymphocytes % 9.6 % (20.0-50.0) L 12/10/18 04:45 Monocytes % 13.0 % (2.0-10.0) H 12/10/18 04:45 Eosinophils % 1.3 % (0.0-5.0) 12/10/18 04:45 Basophils % 0.8 % (0.0-2.0) 12/10/18 04:45 Neutrophils (Manual) 84 % (40-80) H 12/11/18 07:20 Lymphocytes 9 % (20-50) L 12/11/18 07:20 Monocytes 6 % (2-10) 12/11/18 07:20 Eosinophils 0 % (0-5) 12/11/18 07:20 Basophils 0 % (0-3) 12/11/18 07:20 Platelet Estimate ADEQUATE (NORMAL) 12/08/18 05:05 Anisocytosis 1+ 12/11/18 07:20 Macrocytosis 1+ 12/08/18 05:05 Total Retics Counted 5.4 % (0.5-1.5) H 12/08/18 17:45 Absolute Retic 126.9 Th/cmm 12/08/18 17:45 Corrected Retic Count 3.0 % (0.5-1.5) H 12/08/18 17:45 PT 12.6 SECONDS (9.5-11.5) H 12/10/18 05:45 INR 1.22 (0.5-1.4) 12/10/18 05:45 PTT (Actin FS) 29.6 SECONDS (26.0-38.0) 12/10/18 05:45 Sodium 143 mEq/L (136-145) 12/11/18 05:03 Potassium 4.8 mEq/L (3.5-5.1) 12/11/18 05:03 Chloride 111 mEq/L (98-107) H 12/11/18 05:03 Carbon Dioxide 26.1 mEq/L (21.0-31.0) 12/11/18 05:03 Anion Gap 10.7 (7.0-16.0) 12/11/18 05:03 BUN 30 mg/dL (7-25) H 12/11/18 05:03 Creatinine 0.9 mg/dL (0.6-1.2) 12/11/18 05:03 Est GFR ( Amer) > 60.0 ml/min (>90) 12/11/18 05:03 Est GFR (Non-Af Amer) > 60.0 ml/min 12/11/18 05:03 BUN/Creatinine Ratio 33.3 12/11/18 05:03 Glucose 113 mg/dL (70-105) H 12/11/18 05:03 POC Glucose 117 MG/DL (70 - 105) H 12/11/18 06:47 Calcium 8.7 mg/dL (8.6-10.3) 12/11/18 05:03 Iron 38 ug/dL (27-139) 12/08/18 17:45 TIBC 160 ug/dL (250-450) L 12/08/18 17:45 Iron Saturation 24 % (15-55) 12/08/18 17:45 Unsaturated IBC 122 ug/dL (118-369) 12/08/18 17:45 Erythropoietin 45.7 mIU/mL (2.6-18.5) H 12/08/18 17:45 Ferritin 130 ng/mL (15-150) 12/08/18 17:45 Total Bilirubin 1.1 mg/dL (0.3-1.0) H 12/11/18 05:03 AST 59 U/L (13-39) H 12/11/18 05:03 ALT 43 U/L (7-52) 12/11/18 05:03 Alkaline Phosphatase 176 U/L (34-104) H 12/11/18 05:03 Ammonia < 10 umol/L (16-53) L 12/11/18 07:20 Troponin I 0.03 ng/mL (0.01-0.05) 12/07/18 20:37 B-Natriuretic Peptide 748.0 pg/mL (5.0-100.0) H 12/10/18 04:45 Total Protein 5.9 gm/dL (6.0-8.3) L 12/11/18 05:03 Albumin 2.4 gm/dL (3.7-5.3) L 12/11/18 05:03 Globulin 3.5 gm/dL 12/11/18 05:03 Albumin/Globulin Ratio 0.7 (1.0-1.8) L 12/11/18 05:03 LDL Cholesterol Direct 72 mg/dL (75-193) L 12/08/18 17:45 Tumor Marker AFP 1.7 ng/mL (0.0-8.3) 12/08/18 05:05 Vitamin B12 >1999 pg/mL (232-1245) H 12/09/18 04:50 Folic Acid >20.0 ng/mL (>3.0) 12/09/18 04:50 Urine Source CLEAN C 12/07/18 21:10 Urine Color YELLOW 12/07/18 21:10 Urine Clarity HAZY (CLEAR) 12/07/18 21:10 Urine pH 6.0 (4.6 - 8.0) 12/07/18 21:10 Ur Specific [place] 1.025 (1.005-1.030) 12/07/18 21:10 Urine Protein NEGATIVE mg/dL (NEGATIVE) 12/07/18 21:10 Urine Glucose (UA) NEGATIVE mg/dL (NEGATIVE) 12/07/18 21:10 Urine Ketones NEGATIVE mg/dL (NEGATIVE) 12/07/18 21:10 Urine Blood TRACE (NEGATIVE) 12/07/18 21:10 Urine Nitrate NEGATIVE (NEGATIVE) 12/07/18 21:10 Urine Bilirubin NEGATIVE (NEGATIVE) 12/07/18 21:10 Urine Urobilinogen 0.2 E.U./dL (0.2 - 1.0) 12/07/18 21:10 Ur Leukocyte Esterase SMALL (NEGATIVE) H 12/07/18 21:10 Urine RBC 0-2 /hpf (0-5) 12/07/18 21:10 Urine WBC 10-25 /hpf (0-5) H 12/07/18 21:10 Ur Epithelial Cells FEW /lpf (FEW) 12/07/18 21:10 Urine Bacteria MODERATE /hpf (NONE SEEN) H 12/07/18 21:10 Fluid Glucose 188.0 mg/dL 12/10/18 11:10 Fluid Total Protein < 3.0 g/dL 12/10/18 11:10 Stool Occult Blood NEGATIVE (NEGATIVE) 12/09/18 10:45 Influenza A (Rapid) NEG FOR INF A 12/07/18 22:35 Influenza B (Rapid) NEG FOR INF B 12/07/18 22:35 Blood Type O POSITIVE 12/08/18 17:45 Antibody Screen NEGATIVE 12/08/18 17:45 Crossmatch See Detail 12/08/18 17:45 - Physical Exam Vitals and I&O: Vital Signs Temp 98.3 F 12/11/18 07:43 Pulse 60 12/11/18 08:51 Resp 18 12/11/18 07:43 BP 154/57 12/11/18 08:51 Pulse Ox 98 12/11/18 07:43 Intake & Output 12/10/18 12/11/18 12/11/18 18:59 06:59 18:59 Intake Total 1700 150 Output Total 1300 Balance 400 150 Weight (lbs) 51.301 kg 51.256 kg Intake: Intake, IV Amount 50 cefTRIAXone 1 gm In 50 Sodium Chloride 0.9% 50 ml @ 100 mls/hr IV Q12HR [facility] Rx#:[id number] Oral 1650 150 Output: Other 1300 Other: # Voids 4 3 # Bowel Movements 2 3 Stool Characteristics Soft Soft Brown Brown Weight Source Bedscale Bedscale Active Medications: Current Medications Acetaminophen (Tylenol) 650 mg PO Q4HR PRN PRN Reason: Pain or Fever >101 Stop: 02/06/19 02:58 Artificial Tears (Artificial Tears Ophth Soln) 1 drop EACH EYE BID [facility] Stop: 02/06/19 08:59 Last Admin: 12/11/18 08:43 Dose: 1 drop Aspirin (Aspirin Chewable) 81 mg PO DAILY [facility] Stop: 02/06/19 08:59 Last Admin: 12/11/18 08:42 Dose: 81 mg Bisacodyl (Dulcolax 10 Mg Supp) 10 mg RC DAILY PRN PRN Reason: Constipation Stop: 02/06/19 02:58 Brimonidine Tartrate (Alphagan 0.2% Ophth Soln) 1 drop RIGHT EYE BID [facility] Stop: 02/06/19 08:59 Last Admin: 12/11/18 08:43 Dose: 1 drop Docusate Sodium (Colace) 100 mg PO BID [facility] Stop: 02/06/19 08:59 Last Admin: 12/11/18 08:40 Dose: 100 mg Ferrous Sulfate (Iron) 325 mg PO DAILY [facility] Stop: 02/06/19 08:59 Last Admin: 12/11/18 08:40 Dose: 325 mg Folic Acid (Folate) 2 mg PO DAILY [facility] Stop: 02/06/19 08:59 Last Admin: 12/11/18 08:40 Dose: 2 mg Furosemide (Lasix) 20 mg PO DAILY [facility] Stop: 02/07/19 08:59 Last Admin: 12/11/18 08:41 Dose: 20 mg Glimepiride (Amaryl) 8 mg PO DAILY [facility] Stop: 02/06/19 08:59 Last Admin: 12/11/18 08:41 Dose: 8 mg Levofloxacin (Levaquin Pb) 250 mg in 50 mls @ 100 mls/hr IV Q24HR [facility]; Protocol Stop: 02/09/19 21:59 Vancomycin HCl 1 gm/ Sodium (Chloride) 250 mls @ 165 mls/hr IV Q24HR@0900 [facility] Stop: 02/09/19 12:59 Insulin Aspart (Novolog Insulin Sliding Scale) 0 units SUBQ ACHS [facility]; Protocol Stop: 02/06/19 20:59 Last Admin: 12/11/18 07:09 Dose: Not Given Lactulose (Cephulac) 40 gm PO QID [facility] Stop: 02/06/19 08:59 Last Admin: 12/11/18 08:43 Dose: Not Given Latanoprost (Xalatan 0.005% Ophth Soln) 1 drop EACH EYE HS [facility] Stop: 02/06/19 20:59 Last Admin: 12/10/18 20:47 Dose: 1 drop Levothyroxine Sodium (Synthroid) 0.2 mg PO QDAC [facility] Stop: 02/06/19 07:29 Last Admin: 12/11/18 06:42 Dose: 0.2 mg Losartan Potassium (Cozaar) 25 mg PO DAILY [facility] Stop: 02/06/19 08:59 Last Admin: 12/11/18 08:42 Dose: 25 mg Magnesium Hydroxide (Milk Of Magnesia) 30 ml PO DAILY PRN PRN Reason: Constipation Stop: 02/06/19 02:58 Metoprolol Tartrate (Lopressor) 25 mg PO BID [facility] Stop: 02/06/19 08:59 Last Admin: 12/11/18 08:51 Dose: Not Given Miscellaneous (Vancomycin Iv Per Pharmacy) 1 ea MC PRN [facility] Stop: 02/09/19 00:44 Ondansetron HCl (Zofran Odt) 4 mg PO Q8H [facility] Stop: 02/06/19 02:59 Last Admin: 12/11/18 03:09 Dose: Not Given Pantoprazole Sodium (Protonix) 40 mg PO QDAC [facility] Stop: 02/06/19 07:29 Last Admin: 12/11/18 06:42 Dose: 40 mg Rifaximin (Xifaxan) 550 mg PO BID [facility] Stop: 02/06/19 08:59 Last Admin: 12/11/18 08:40 Dose: 550 mg Sitagliptin Phosphate (Januvia) 100 mg PO QDAC [facility] Stop: 02/06/19 07:29 Last Admin: 12/11/18 06:41 Dose: 100 mg Sodium Phosphate (Fleet Enema) 135 ml RC DAILY PRN PRN Reason: Constipation Stop: 02/06/19 02:58 Spironolactone (Aldactone) 50 mg PO BID [facility] Stop: 02/07/19 08:59 Last Admin: 12/11/18 08:42 Dose: 50 mg General: no acute distress, cachectic HEENT: atraumatic, normocephalic, PERRLA, EOMI Neck: supple, no thyromegaly Cardiovascular: S1S2, regular Lungs: clear to auscultation bilaterally, clear to percussion Abdomen: soft, bowel sounds, no tender, no distended, no mass, no hepatomegaly Extremities: no cyanosis, no clubbing, no edema Neurological: awake, alert, oriented Skin: intact Infectious Disease Assmt/Plan - Assessment Assessment: 1. Anemia likely 2/2 cirrhosis.? MDS. 2. Dehydration. 3. Liver cirrhosis. 4. Metabolic, hepatic encephalopathy. 5. Pneumonia, bilateral pleural effusion. 6. CHF. 7. Right eye blindness. 8. Staph bacteremia. 9. gluteal Wounds. 10. UTI - Plan Plan: Will continue same treatment. Consultation by Dr Colleen Christian, Dr bartlett appreciated. GI consult and hemalology consult appreciated. Anemia w/u. One unit of PRBC transfused ( 12/08/2018) stool for occult blood. Vanco IV , change rocepin to levaquin. Wound care. Repeat blood cs. LTAC eval after anemia w/u completed by Dr Glass. Nuclear scan. ?BM Bx Nutritional Asmnt/Malnutr-PDOC - Dietary Evaluation Malnutrition Findings (Please click <Entered> for more info): Nutritional Asmnt/Malnutrition Start: 12/09/18 15: 06 Text: Status: Complete Freq: Protocol: Document 12/09/18 15:07 LCHENG (Rec: 12/09/18 15:23 [email or web address]) Nutritional Asmnt/Malnutrition Patient General Information Nutritional Screening High Risk Diagnosis dehydration, anemia Pertinent Medical Hx/Surgical Hx HTN, Dm, CHF, asthma/COPD, thyroid disorder, blindness, cirrhosis, hernia Subjective Information Pt seen sleeping in bed at time of visit, Hebrew speaking noted. Per ZOOKEEPER, pt has poor PO intake d/t no appetite and stomach up set. PO intake 0-25% on 12/08. Pt was on NPO d/t shceduled U/S today. Current Diet Order/ Nutrition Support NPO. was on [facility] soft chopped ALEK, CCHO Pertinent Medications colace, iron, folate, lasix, novolog, synthroid, zofran, protonix, januvia Pertinent Labs 2/4 Na 148, K 5.4, Cl 117, Gluocse 177, POC 137-180 2/3 K 5.5, Cl 114, Glucose 91, POC 79-243, Ca 8.3 Nutritional Hx/Data Height 1.55 m Height (Calculated Centimeters) 154.9 Current Weight (lbs) 50.349 kg Weight (Calculated Kilograms) 50.3 Weight (Calculated Grams) 41981.8 [place] Body Weight 105 Body Mass Index (BMI) 20.9 Weight Status Approriate GI Symptoms GI Symptoms None Last BM 2/4 x 2 Difficult in: None Skin Integrity/Comment: pressure area reddened to sacral Current %PO Negligible < 25% Estimated Nutritional Goals BEE in Kcals: Using Current wt Calories/Kcals/Kg 25-30 Kcals Calculated 0503-6410 Protein: Using Current wt Protein g/k Protein Calculated 50 Fluid: ml 1250-1500ml (1ml/kcal) Nutritional Problem 2. Problem Problem altered nutrition related labs Etiology possible renal dysfunction, hyperglycemia Signs/Symptoms: K 5.4-5.5, Gluocse 177, POC 137-180 1. Problem Problem inadequate food intake Etiology poor appetite and stomach upset Signs/Symptoms: PO intake 0-25% Intervention/Recommendation Comments 1. Continue with mech soft chopped ALEK CCHO diet as ordered. consider adding renal diet if K continue elevated. 2. Add Glucerna TID for extra kcal and protein d/t poor appetite. 3. Monitor PO intake, wt, labs and skin integrity 4. F/U as high risk in 2-3 days Expected Outcomes/Goals Expected Outcomes/Goals 1. PO intake improved to meet at least 75% of nutritional needs. 2. Wt stability, skin to remain intact, labs to approach WNL.
--- NOTE | 2018-12-11 10:22 | General Progress Note ---
Subjective - Review of Systems Service Date: 12/11/18 Subjective: no new sxs. Sitting on a chair Objective - Results Result Diagrams: 12/11/18 07:20 12/11/18 05:03 Recent Labs: Laboratory Last Values WBC 6.1 Th/cmm (4.8-10.8) 12/11/18 07:20 RBC 3.10 Mil/cmm (3.80-5.20) L 12/11/18 07:20 Hgb 10.1 gm/dL (12-16) L 12/11/18 07:20 Hct 30.5 % (41.0-60) L 12/11/18 07:20 MCV 98.4 fl (81-100) 12/11/18 07:20 MCH 32.6 pg (27.0-31.0) H 12/11/18 07:20 MCHC Differential 33.1 pg (28.0-36.0) 12/11/18 07:20 RDW 22.5 % (11.5-20.0) H 12/11/18 07:20 Plt Count 103 Th/cmm (150-400) L 12/11/18 07:20 MPV 10.6 fl 12/11/18 07:20 Add Manual Diff YES 12/11/18 07:20 Neutrophils % 75.3 % (40.0-80.0) 12/10/18 04:45 Band Neutrophils % 1 % (0-10) 12/11/18 07:20 Lymphocytes % 9.6 % (20.0-50.0) L 12/10/18 04:45 Monocytes % 13.0 % (2.0-10.0) H 12/10/18 04:45 Eosinophils % 1.3 % (0.0-5.0) 12/10/18 04:45 Basophils % 0.8 % (0.0-2.0) 12/10/18 04:45 Neutrophils (Manual) 84 % (40-80) H 12/11/18 07:20 Lymphocytes 9 % (20-50) L 12/11/18 07:20 Monocytes 6 % (2-10) 12/11/18 07:20 Eosinophils 0 % (0-5) 12/11/18 07:20 Basophils 0 % (0-3) 12/11/18 07:20 Platelet Estimate ADEQUATE (NORMAL) 12/08/18 05:05 Anisocytosis 1+ 12/11/18 07:20 Macrocytosis 1+ 12/08/18 05:05 Total Retics Counted 5.4 % (0.5-1.5) H 12/08/18 17:45 Absolute Retic 126.9 Th/cmm 12/08/18 17:45 Corrected Retic Count 3.0 % (0.5-1.5) H 12/08/18 17:45 PT 12.6 SECONDS (9.5-11.5) H 12/10/18 05:45 INR 1.22 (0.5-1.4) 12/10/18 05:45 PTT (Actin FS) 29.6 SECONDS (26.0-38.0) 12/10/18 05:45 Sodium 143 mEq/L (136-145) 12/11/18 05:03 Potassium 4.8 mEq/L (3.5-5.1) 12/11/18 05:03 Chloride 111 mEq/L (98-107) H 12/11/18 05:03 Carbon Dioxide 26.1 mEq/L (21.0-31.0) 12/11/18 05:03 Anion Gap 10.7 (7.0-16.0) 12/11/18 05:03 BUN 30 mg/dL (7-25) H 12/11/18 05:03 Creatinine 0.9 mg/dL (0.6-1.2) 12/11/18 05:03 Est GFR ( Amer) > 60.0 ml/min (>90) 12/11/18 05:03 Est GFR (Non-Af Amer) > 60.0 ml/min 12/11/18 05:03 BUN/Creatinine Ratio 33.3 12/11/18 05:03 Glucose 113 mg/dL (70-105) H 12/11/18 05:03 POC Glucose 117 MG/DL (70 - 105) H 12/11/18 06:47 Calcium 8.7 mg/dL (8.6-10.3) 12/11/18 05:03 Iron 38 ug/dL (27-139) 12/08/18 17:45 TIBC 160 ug/dL (250-450) L 12/08/18 17:45 Iron Saturation 24 % (15-55) 12/08/18 17:45 Unsaturated IBC 122 ug/dL (118-369) 12/08/18 17:45 Erythropoietin 45.7 mIU/mL (2.6-18.5) H 12/08/18 17:45 Ferritin 130 ng/mL (15-150) 12/08/18 17:45 Total Bilirubin 1.1 mg/dL (0.3-1.0) H 12/11/18 05:03 AST 59 U/L (13-39) H 12/11/18 05:03 ALT 43 U/L (7-52) 12/11/18 05:03 Alkaline Phosphatase 176 U/L (34-104) H 12/11/18 05:03 Ammonia < 10 umol/L (16-53) L 12/11/18 07:20 Troponin I 0.03 ng/mL (0.01-0.05) 12/07/18 20:37 B-Natriuretic Peptide 748.0 pg/mL (5.0-100.0) H 12/10/18 04:45 Total Protein 5.9 gm/dL (6.0-8.3) L 12/11/18 05:03 Albumin 2.4 gm/dL (3.7-5.3) L 12/11/18 05:03 Globulin 3.5 gm/dL 12/11/18 05:03 Albumin/Globulin Ratio 0.7 (1.0-1.8) L 12/11/18 05:03 LDL Cholesterol Direct 72 mg/dL (75-193) L 12/08/18 17:45 Tumor Marker AFP 1.7 ng/mL (0.0-8.3) 12/08/18 05:05 Vitamin B12 >1999 pg/mL (232-1245) H 12/09/18 04:50 Folic Acid >20.0 ng/mL (>3.0) 12/09/18 04:50 Urine Source CLEAN C 12/07/18 21:10 Urine Color YELLOW 12/07/18 21:10 Urine Clarity HAZY (CLEAR) 12/07/18 21:10 Urine pH 6.0 (4.6 - 8.0) 12/07/18 21:10 Ur Specific [place] 1.025 (1.005-1.030) 12/07/18 21:10 Urine Protein NEGATIVE mg/dL (NEGATIVE) 12/07/18 21:10 Urine Glucose (UA) NEGATIVE mg/dL (NEGATIVE) 12/07/18 21:10 Urine Ketones NEGATIVE mg/dL (NEGATIVE) 12/07/18 21:10 Urine Blood TRACE (NEGATIVE) 12/07/18 21:10 Urine Nitrate NEGATIVE (NEGATIVE) 12/07/18 21:10 Urine Bilirubin NEGATIVE (NEGATIVE) 12/07/18 21:10 Urine Urobilinogen 0.2 E.U./dL (0.2 - 1.0) 12/07/18 21:10 Ur Leukocyte Esterase SMALL (NEGATIVE) H 12/07/18 21:10 Urine RBC 0-2 /hpf (0-5) 12/07/18 21:10 Urine WBC 10-25 /hpf (0-5) H 12/07/18 21:10 Ur Epithelial Cells FEW /lpf (FEW) 12/07/18 21:10 Urine Bacteria MODERATE /hpf (NONE SEEN) H 12/07/18 21:10 Fluid Glucose 188.0 mg/dL 12/10/18 11:10 Fluid Total Protein < 3.0 g/dL 12/10/18 11:10 Stool Occult Blood NEGATIVE (NEGATIVE) 12/09/18 10:45 Influenza A (Rapid) NEG FOR INF A 12/07/18 22:35 Influenza B (Rapid) NEG FOR INF B 12/07/18 22:35 Blood Type O POSITIVE 12/08/18 17:45 Antibody Screen NEGATIVE 12/08/18 17:45 Crossmatch See Detail 12/08/18 17:45 - Physical Exam Vitals and I&O: Vital Signs Temp 98.3 F 12/11/18 07:43 Pulse 60 12/11/18 08:51 Resp 18 12/11/18 07:43 BP 154/57 12/11/18 08:51 Pulse Ox 98 12/11/18 07:43 Intake & Output 12/10/18 12/11/18 12/11/18 18:59 06:59 18:59 Intake Total 1700 150 Output Total 1300 Balance 400 150 Weight (lbs) 51.301 kg 51.256 kg Intake: Intake, IV Amount 50 [id number] 1 gm In 50 Sodium Chloride 0.9% 50 ml @ 100 mls/hr IV Q12HR [facility] Rx#:[id number] Oral 1650 150 Output: Other 1300 Other: # Voids 4 3 # Bowel Movements 2 3 Stool Characteristics Soft Soft Brown Brown Weight Source Bedscale Bedscale Active Medications: Current Medications Acetaminophen (Tylenol) 650 mg PO Q4HR PRN PRN Reason: Pain or Fever >101 Stop: 02/06/19 02:58 Artificial Tears (Artificial Tears Ophth Soln) 1 drop EACH EYE BID [facility] Stop: 02/06/19 08:59 Last Admin: 12/11/18 08:43 Dose: 1 drop Aspirin (Aspirin Chewable) 81 mg PO DAILY [facility] Stop: 02/06/19 08:59 Last Admin: 12/11/18 08:42 Dose: 81 mg Bisacodyl (Dulcolax 10 Mg Supp) 10 mg RC DAILY PRN PRN Reason: Constipation Stop: 02/06/19 02:58 Brimonidine Tartrate (Alphagan 0.2% Ophth Soln) 1 drop RIGHT EYE BID [facility] Stop: 02/06/19 08:59 Last Admin: 12/11/18 08:43 Dose: 1 drop Docusate Sodium (Colace) 100 mg PO BID [facility] Stop: 02/06/19 08:59 Last Admin: 12/11/18 08:40 Dose: 100 mg Ferrous Sulfate (Iron) 325 mg PO DAILY [facility] Stop: 02/06/19 08:59 Last Admin: 12/11/18 08:40 Dose: 325 mg Folic Acid (Folate) 2 mg PO DAILY [facility] Stop: 02/06/19 08:59 Last Admin: 12/11/18 08:40 Dose: 2 mg Furosemide (Lasix) 20 mg PO DAILY [facility] Stop: 02/07/19 08:59 Last Admin: 12/11/18 08:41 Dose: 20 mg Glimepiride (Amaryl) 8 mg PO DAILY [facility] Stop: 02/06/19 08:59 Last Admin: 12/11/18 08:41 Dose: 8 mg Levofloxacin (Levaquin Pb) 250 mg in 50 mls @ 50 mls/hr IV Q24HR [facility]; Protocol Stop: 02/09/19 21:59 Vancomycin HCl 1 gm/ Sodium (Chloride) 250 mls @ 165 mls/hr IV Q24HR@0900 [facility] Stop: 02/09/19 12:59 Insulin Aspart (Novolog Insulin Sliding Scale) 0 units SUBQ ACHS [facility]; Protocol Stop: 02/06/19 20:59 Last Admin: 12/11/18 07:09 Dose: Not Given Lactulose (Cephulac) 40 gm PO QID [facility] Stop: 02/06/19 08:59 Last Admin: 12/11/18 08:43 Dose: Not Given Latanoprost (Xalatan 0.005% Ophth Soln) 1 drop EACH EYE HS [facility] Stop: 02/06/19 20:59 Last Admin: 12/10/18 20:47 Dose: 1 drop Levothyroxine Sodium (Synthroid) 0.2 mg PO QDAC [facility] Stop: 02/06/19 07:29 Last Admin: 12/11/18 06:42 Dose: 0.2 mg Losartan Potassium (Cozaar) 25 mg PO DAILY [facility] Stop: 02/06/19 08:59 Last Admin: 12/11/18 08:42 Dose: 25 mg Magnesium Hydroxide (Milk Of Magnesia) 30 ml PO DAILY PRN PRN Reason: Constipation Stop: 02/06/19 02:58 Metoprolol Tartrate (Lopressor) 25 mg PO BID [facility] Stop: 02/06/19 08:59 Last Admin: 12/11/18 08:51 Dose: Not Given Miscellaneous (Vancomycin Iv Per Pharmacy) 1 ea MC PRN [facility] Stop: 02/09/19 00:44 Ondansetron HCl (Zofran Odt) 4 mg PO Q8H [facility] Stop: 02/06/19 02:59 Last Admin: 12/11/18 03:09 Dose: Not Given Pantoprazole Sodium (Protonix) 40 mg PO QDAC [facility] Stop: 02/06/19 07:29 Last Admin: 12/11/18 06:42 Dose: 40 mg Rifaximin (Xifaxan) 550 mg PO BID [facility] Stop: 02/06/19 08:59 Last Admin: 12/11/18 08:40 Dose: 550 mg Sitagliptin Phosphate (Januvia) 100 mg PO QDAC [facility] Stop: 02/06/19 07:29 Last Admin: 12/11/18 06:41 Dose: 100 mg Sodium Phosphate (Fleet Enema) 135 ml RC DAILY PRN PRN Reason: Constipation Stop: 02/06/19 02:58 Spironolactone (Aldactone) 50 mg PO BID [facility] Stop: 02/07/19 08:59 Last Admin: 12/11/18 08:42 Dose: 50 mg General: Alert HEENT: Mucous membr. moist/pink Neck: Supple, JVD (flat) Cardiovascular: Regular rate Lungs: Other (basilar rales) Abdomen: Bowel sounds, Soft, no Tender, no Hepatomegaly, no Splenomegaly, no Distended, no Rebound, no Mass Extremities: Pulses (normal) Neurological: Normal gait Skin: no Rash, no Breakdown, no Significant lesion, no Other Assessment/Plan - Assessment Assessment: 12/11: Stool OB negative. check nuclear medicine colloid scan for Liver/spleen to evaluate hyperspenism. hgb is stable today. May need BM biopsy to evaluate MDS 12/10/18: Spleen size normal. will obtain nuclear medicine scar. nodular cirrhotic liver.. check stool OB. iron studies and b12 normal. may need BM Bx to eval for MDS Macrocytic anemia on presentation, most consistent with anemia of liver disease. 2. 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 PLAN: I will obtain abdominal ultrasound and obtain comprehensive anemia workup including iron studies, B12, and folate level and stool occult blood. Urinalysis from admission showed no evidence of microscopic hematuria. The patient was transfused 1 unit of packed red blood cells on 12/08/2018. Nutritional Asmnt/Malnutr-PDOC - Dietary Evaluation Malnutrition Findings (Please click <Entered> for more info): Nutritional Asmnt/Malnutrition Start: 12/09/18 15: 06 Text: Status: Complete Freq: Protocol: Document 12/09/18 15:07 LCHENG (Rec: 12/09/18 15:23 [email or web address]) Nutritional Asmnt/Malnutrition Patient General Information Nutritional Screening High Risk Diagnosis dehydration, anemia Pertinent Medical Hx/Surgical Hx HTN, Dm, CHF, asthma/COPD, thyroid disorder, blindness, cirrhosis, hernia Subjective Information Pt seen sleeping in bed at time of visit, [place] speaking noted. Per [employer]ICER, pt has poor PO intake d/t no appetite and stomach up set. PO intake 0-25% on 12/08. Pt was on NPO d/t shceduled U/S today. Current Diet Order/ Nutrition Support NPO. was on [facility] soft chopped ALEK, CCHO Pertinent Medications colace, iron, folate, lasix, novolog, synthroid, zofran, protonix, januvia Pertinent Labs 2/4 Na 148, K 5.4, Cl 117, Gluocse 177, POC 137-180 2/3 K 5.5, Cl 114, Glucose 91, POC 79-243, Ca 8.3 Nutritional Hx/Data Height 1.55 m Height (Calculated Centimeters) 154.9 Current Weight (lbs) 50.349 kg Weight (Calculated Kilograms) 50.3 Weight (Calculated Grams) 00180.8 [place] Body Weight 105 Body Mass Index (BMI) 20.9 Weight Status Approriate GI Symptoms GI Symptoms None Last BM 2/4 x 2 Difficult in: None Skin Integrity/Comment: pressure area reddened to sacral Current %PO Negligible < 25% Estimated Nutritional Goals BEE in Kcals: Using Current wt Calories/Kcals/Kg 25-30 Kcals Calculated 9350-2086 Protein: Using Current wt Protein g/k Protein Calculated 50 Fluid: ml 1250-1500ml (1ml/kcal) Nutritional Problem 2. Problem Problem altered nutrition related labs Etiology possible renal dysfunction, hyperglycemia Signs/Symptoms: K 5.4-5.5, Gluocse 177, POC 137-180 1. Problem Problem inadequate food intake Etiology poor appetite and stomach upset Signs/Symptoms: PO intake 0-25% Intervention/Recommendation Comments 1. Continue with mech soft chopped ALEK CCHO diet as ordered. consider adding renal diet if K continue elevated. 2. Add Glucerna TID for extra kcal and protein d/t poor appetite. 3. Monitor PO intake, wt, labs and skin integrity 4. F/U as high risk in 2-3 days Expected Outcomes/Goals Expected Outcomes/Goals 1. PO intake improved to meet at least 75% of nutritional needs. 2. Wt stability, skin to remain intact, labs to approach WNL.
[2018-12-11 12:10] LABS: BODY FLUID SOURCE PLEURAL
[2018-12-11 12:11] LABS: BF APPEARANCE CLEAR; BF COLOR YELLOW
[2018-12-11 12:15] LABS: BF RBC 936 /cumm; BF WBC 36 /cumm
--- NOTE | 2018-12-11 13:22 | General Progress Note ---
Subjective - Review of Systems Service Date: 12/11/18 Subjective: Patient has less shortness of breath minimal cough Patient has thoracentesis Objective - Results Result Diagrams: 12/11/18 07:20 12/11/18 05:03 Recent Labs: Laboratory Last Values WBC 6.1 Th/cmm (4.8-10.8) 12/11/18 07:20 RBC 3.10 Mil/cmm (3.80-5.20) L 12/11/18 07:20 Hgb 10.1 gm/dL (12-16) L 12/11/18 07:20 Hct 30.5 % (41.0-60) L 12/11/18 07:20 MCV 98.4 fl (81-100) 12/11/18 07:20 MCH 32.6 pg (27.0-31.0) H 12/11/18 07:20 MCHC Differential 33.1 pg (28.0-36.0) 12/11/18 07:20 RDW 22.5 % (11.5-20.0) H 12/11/18 07:20 Plt Count 103 Th/cmm (150-400) L 12/11/18 07:20 MPV 10.6 fl 12/11/18 07:20 Add Manual Diff YES 12/11/18 07:20 Neutrophils % 75.3 % (40.0-80.0) 12/10/18 04:45 Band Neutrophils % 1 % (0-10) 12/11/18 07:20 Lymphocytes % 9.6 % (20.0-50.0) L 12/10/18 04:45 Monocytes % 13.0 % (2.0-10.0) H 12/10/18 04:45 Eosinophils % 1.3 % (0.0-5.0) 12/10/18 04:45 Basophils % 0.8 % (0.0-2.0) 12/10/18 04:45 Neutrophils (Manual) 84 % (40-80) H 12/11/18 07:20 Lymphocytes 9 % (20-50) L 12/11/18 07:20 Monocytes 6 % (2-10) 12/11/18 07:20 Eosinophils 0 % (0-5) 12/11/18 07:20 Basophils 0 % (0-3) 12/11/18 07:20 Platelet Estimate ADEQUATE (NORMAL) 12/08/18 05:05 Anisocytosis 1+ 12/11/18 07:20 Macrocytosis 1+ 12/08/18 05:05 Total Retics Counted 5.4 % (0.5-1.5) H 12/08/18 17:45 Absolute Retic 126.9 Th/cmm 12/08/18 17:45 Corrected Retic Count 3.0 % (0.5-1.5) H 12/08/18 17:45 PT 12.6 SECONDS (9.5-11.5) H 12/10/18 05:45 INR 1.22 (0.5-1.4) 12/10/18 05:45 PTT (Actin FS) 29.6 SECONDS (26.0-38.0) 12/10/18 05:45 Sodium 143 mEq/L (136-145) 12/11/18 05:03 Potassium 4.8 mEq/L (3.5-5.1) 12/11/18 05:03 Chloride 111 mEq/L (98-107) H 12/11/18 05:03 Carbon Dioxide 26.1 mEq/L (21.0-31.0) 12/11/18 05:03 Anion Gap 10.7 (7.0-16.0) 12/11/18 05:03 BUN 30 mg/dL (7-25) H 12/11/18 05:03 Creatinine 0.9 mg/dL (0.6-1.2) 12/11/18 05:03 Est GFR ( Amer) > 60.0 ml/min (>90) 12/11/18 05:03 Est GFR (Non-Af Amer) > 60.0 ml/min 12/11/18 05:03 BUN/Creatinine Ratio 33.3 12/11/18 05:03 Glucose 113 mg/dL (70-105) H 12/11/18 05:03 POC Glucose 160 MG/DL (70 - 105) H 12/11/18 11:31 Calcium 8.7 mg/dL (8.6-10.3) 12/11/18 05:03 Iron 38 ug/dL (27-139) 12/08/18 17:45 TIBC 160 ug/dL (250-450) L 12/08/18 17:45 Iron Saturation 24 % (15-55) 12/08/18 17:45 Unsaturated IBC 122 ug/dL (118-369) 12/08/18 17:45 Erythropoietin 45.7 mIU/mL (2.6-18.5) H 12/08/18 17:45 Ferritin 130 ng/mL (15-150) 12/08/18 17:45 Total Bilirubin 1.1 mg/dL (0.3-1.0) H 12/11/18 05:03 AST 59 U/L (13-39) H 12/11/18 05:03 ALT 43 U/L (7-52) 12/11/18 05:03 Alkaline Phosphatase 176 U/L (34-104) H 12/11/18 05:03 Ammonia < 10 umol/L (16-53) L 12/11/18 07:20 Troponin I 0.03 ng/mL (0.01-0.05) 12/07/18 20:37 B-Natriuretic Peptide 748.0 pg/mL (5.0-100.0) H 12/10/18 04:45 Total Protein 5.9 gm/dL (6.0-8.3) L 12/11/18 05:03 Albumin 2.4 gm/dL (3.7-5.3) L 12/11/18 05:03 Globulin 3.5 gm/dL 12/11/18 05:03 Albumin/Globulin Ratio 0.7 (1.0-1.8) L 12/11/18 05:03 LDL Cholesterol Direct 72 mg/dL (75-193) L 12/08/18 17:45 Tumor Marker AFP 1.7 ng/mL (0.0-8.3) 12/08/18 05:05 Vitamin B12 >1999 pg/mL (232-1245) H 12/09/18 04:50 Folic Acid >20.0 ng/mL (>3.0) 12/09/18 04:50 Urine Source CLEAN C 12/07/18 21:10 Urine Color YELLOW 12/07/18 21:10 Urine Clarity HAZY (CLEAR) 12/07/18 21:10 Urine pH 6.0 (4.6 - 8.0) 12/07/18 21:10 Ur Specific [place] 1.025 (1.005-1.030) 12/07/18 21:10 Urine Protein NEGATIVE mg/dL (NEGATIVE) 12/07/18 21:10 Urine Glucose (UA) NEGATIVE mg/dL (NEGATIVE) 12/07/18 21:10 Urine Ketones NEGATIVE mg/dL (NEGATIVE) 12/07/18 21:10 Urine Blood TRACE (NEGATIVE) 12/07/18 21:10 Urine Nitrate NEGATIVE (NEGATIVE) 12/07/18 21:10 Urine Bilirubin NEGATIVE (NEGATIVE) 12/07/18 21:10 Urine Urobilinogen 0.2 E.U./dL (0.2 - 1.0) 12/07/18 21:10 Ur Leukocyte Esterase SMALL (NEGATIVE) H 12/07/18 21:10 Urine RBC 0-2 /hpf (0-5) 12/07/18 21:10 Urine WBC 10-25 /hpf (0-5) H 12/07/18 21:10 Ur Epithelial Cells FEW /lpf (FEW) 12/07/18 21:10 Urine Bacteria MODERATE /hpf (NONE SEEN) H 12/07/18 21:10 Fluid Source PLEURAL 12/10/18 11:10 Fluid Color YELLOW 12/10/18 11:10 Fluid Appearance CLEAR 12/10/18 11:10 Fluid WBC 36 /cumm 12/10/18 11:10 Fluid RBC 936 /cumm 12/10/18 11:10 Fluid Glucose 188.0 mg/dL 12/10/18 11:10 Fluid Total Protein < 3.0 g/dL 12/10/18 11:10 Fluid LDH 47 U/L 12/10/18 11:10 Stool Occult Blood NEGATIVE (NEGATIVE) 12/09/18 10:45 Influenza A (Rapid) NEG FOR INF A 12/07/18 22:35 Influenza B (Rapid) NEG FOR INF B 12/07/18 22:35 Blood Type O POSITIVE 12/08/18 17:45 Antibody Screen NEGATIVE 12/08/18 17:45 Crossmatch See Detail 12/08/18 17:45 - Physical Exam Vitals and I&O: Vital Signs Temp 98.1 F 12/11/18 11:42 Pulse 56 12/11/18 11:42 Resp 18 12/11/18 12:35 BP 161/56 12/11/18 11:42 Pulse Ox 98 12/11/18 11:42 Intake & Output 12/10/18 12/11/18 12/11/18 18:59 06:59 18:59 Intake Total 1700 150 Output Total 1300 Balance 400 150 Weight (lbs) 51.301 kg 51.256 kg Intake: Intake, IV Amount 50 cefTRIAXone 1 gm In 50 Sodium Chloride 0.9% 50 ml @ 100 mls/hr IV Q12HR [facility] Rx#:[id number] Oral 1650 150 Output: Other 1300 Other: # Voids 4 3 # Bowel Movements 2 3 Stool Characteristics Soft Soft Soft Brown Brown Brown Weight Source Bedscale Bedscale Active Medications: Current Medications Acetaminophen (Tylenol) 650 mg PO Q4HR PRN PRN Reason: Pain or Fever >101 Stop: 02/06/19 02:58 Artificial Tears (Artificial Tears Ophth Soln) 1 drop EACH EYE BID [facility] Stop: 02/06/19 08:59 Last Admin: 12/11/18 08:43 Dose: 1 drop Aspirin (Aspirin Chewable) 81 mg PO DAILY [facility] Stop: 02/06/19 08:59 Last Admin: 12/11/18 08:42 Dose: 81 mg Bisacodyl (Dulcolax 10 Mg Supp) 10 mg RC DAILY PRN PRN Reason: Constipation Stop: 02/06/19 02:58 Brimonidine Tartrate (Alphagan 0.2% Ophth Soln) 1 drop RIGHT EYE BID [facility] Stop: 02/06/19 08:59 Last Admin: 12/11/18 08:43 Dose: 1 drop Docusate Sodium (Colace) 100 mg PO BID [facility] Stop: 02/06/19 08:59 Last Admin: 12/11/18 08:40 Dose: 100 mg Ferrous Sulfate (Iron) 325 mg PO DAILY [facility] Stop: 02/06/19 08:59 Last Admin: 12/11/18 08:40 Dose: 325 mg Folic Acid (Folate) 2 mg PO DAILY [facility] Stop: 02/06/19 08:59 Last Admin: 12/11/18 08:40 Dose: 2 mg Furosemide (Lasix) 20 mg PO DAILY [facility] Stop: 02/07/19 08:59 Last Admin: 12/11/18 08:41 Dose: 20 mg Glimepiride (Amaryl) 8 mg PO DAILY [facility] Stop: 02/06/19 08:59 Last Admin: 12/11/18 08:41 Dose: 8 mg Levofloxacin (Levaquin Pb) 250 mg in 50 mls @ 50 mls/hr IV Q24HR [facility]; Protocol Stop: 02/09/19 21:59 Vancomycin HCl 1 gm/ Sodium (Chloride) 250 mls @ 165 mls/hr IV Q24HR@0900 [facility] Stop: 02/09/19 12:59 Last Admin: 12/11/18 12:12 Dose: 165 mls/hr Insulin Aspart (Novolog Insulin Sliding Scale) 0 units SUBQ ACHS [facility]; Protocol Stop: 02/06/19 20:59 Last Admin: 12/11/18 12:23 Dose: 3 units Lactulose (Cephulac) 40 gm PO QID YARI Stop: 02/06/19 08:59 Last Admin: 12/11/18 12:12 Dose: 40 gm Latanoprost (Xalatan 0.005% [facility]) 1 drop EACH EYE HS [facility] Stop: 02/06/19 20:59 Last Admin: 12/10/18 20:47 Dose: 1 drop Levothyroxine Sodium (Synthroid) 0.2 mg PO QDAC [facility] Stop: 02/06/19 07:29 Last Admin: 12/11/18 06:42 Dose: 0.2 mg Losartan Potassium (Cozaar) 25 mg PO DAILY [facility] Stop: 02/06/19 08:59 Last Admin: 12/11/18 08:42 Dose: 25 mg Magnesium Hydroxide (Milk Of Magnesia) 30 ml PO DAILY PRN PRN Reason: Constipation Stop: 02/06/19 02:58 Metoprolol Tartrate (Lopressor) 25 mg PO BID [facility] Stop: 02/06/19 08:59 Last Admin: 12/11/18 08:51 Dose: Not Given Miscellaneous (Vancomycin Iv Per Pharmacy) 1 ea MC PRN [facility] Stop: 02/09/19 00:44 Ondansetron HCl (Zofran Odt) 4 mg PO Q8H [facility] Stop: 02/06/19 02:59 Last Admin: 12/11/18 12:12 Dose: 4 mg Pantoprazole Sodium (Protonix) 40 mg PO QDAC [facility] Stop: 02/06/19 07:29 Last Admin: 12/11/18 06:42 Dose: 40 mg Rifaximin (Xifaxan) 550 mg PO BID [facility] Stop: 02/06/19 08:59 Last Admin: 12/11/18 08:40 Dose: 550 mg Sitagliptin Phosphate (Januvia) 100 mg PO QDAC YARI Stop: 02/06/19 07:29 Last Admin: 12/11/18 06:41 Dose: 100 mg Sodium Phosphate (Fleet Enema) 135 ml RC DAILY PRN PRN Reason: Constipation Stop: 02/06/19 02:58 Spironolactone (Aldactone) 50 mg PO BID YARI Stop: 02/07/19 08:59 Last Admin: 12/11/18 08:42 Dose: 50 mg General: Alert HEENT: Mucous membr. moist/pink Neck: Supple, JVD (flat) Cardiovascular: Regular rate Lungs: Other (basilar rales) Abdomen: Bowel sounds, Soft, no Tender, no Hepatomegaly, no Splenomegaly, no Distended, no Rebound, no Mass Extremities: Pulses (normal) Neurological: Normal gait Skin: no Rash, no Breakdown, no Significant lesion, no Other Assessment/Plan - Assessment Assessment: Pneumonia Bilateral pleural effusion Mild congestive heart failure diastolic dysfunction and acute Hypothyroid Sinusitis Cirrhosis of liver Diabetes mellitus type 2 insulin-dependent Hyperkalemia Right eye blindness Glaucoma Iron deficiency anemia Thrombocytopenia Echocardiogram patient has severe mitral regurgitation severe tricuspid regurgitation severe pulmonary hypertension with right ventricular systolic pressure 64 mmHg - Plan Plan: Continue antibiotics monitor diabetes Echocardiogram for congestive heart failure Ejection fraction normal severe mitral regurgitation severe tricuspid regurgitation severe pulmonary hypertension with right ventricular systolic pressure 60 mmHg Patient had thoracentesis today Nutritional Asmnt/Malnutr-PDOC - Dietary Evaluation Malnutrition Findings (Please click <Entered> for more info): Nutritional Asmnt/Malnutrition Start: 12/09/18 15: 06 Text: Status: Complete Freq: Protocol: Document 12/09/18 15:07 [email or web address] (Rec: 12/09/18 15:23 [email or web address]) Nutritional Asmnt/Malnutrition Patient General Information Nutritional Screening High Risk Diagnosis dehydration, anemia Pertinent Medical Hx/Surgical Hx HTN, Dm, CHF, asthma/COPD, thyroid disorder, blindness, cirrhosis, hernia Subjective Information Pt seen sleeping in bed at time of visit, Lithuanian speaking noted. Per [employer]ITOR TESTER, pt has poor PO intake d/t no appetite and stomach up set. PO intake 0-25% on 12/08. Pt was on NPO d/t shceduled U/S today. Current Diet Order/ Nutrition Support NPO. was on [facility] soft chopped ALEK, CCHO Pertinent Medications colace, iron, folate, lasix, novolog, synthroid, zofran, protonix, januvia Pertinent Labs 2/4 Na 148, K 5.4, Cl 117, Gluocse 177, POC 137-180 2/3 K 5.5, Cl 114, Glucose 91, POC 79-243, Ca 8.3 Nutritional Hx/Data Height 1.55 m Height (Calculated Centimeters) 154.9 Current Weight (lbs) 50.349 kg Weight (Calculated Kilograms) 50.3 Weight (Calculated Grams) 11146.8 Tully Body Weight 105 Body Mass Index (BMI) 20.9 Weight Status Approriate GI Symptoms GI Symptoms None Last BM 2/4 x 2 Difficult in: None Skin Integrity/Comment: pressure area reddened to sacral Current %PO Negligible < 25% Estimated Nutritional Goals BEE in Kcals: Using Current wt Calories/Kcals/Kg 25-30 Kcals Calculated 4692-4471 Protein: Using Current wt Protein g/k Protein Calculated 50 Fluid: ml 1250-1500ml (1ml/kcal) Nutritional Problem 2. Problem Problem altered nutrition related labs Etiology possible renal dysfunction, hyperglycemia Signs/Symptoms: K 5.4-5.5, Gluocse 177, POC 137-180 1. Problem Problem inadequate food intake Etiology poor appetite and stomach upset Signs/Symptoms: PO intake 0-25% Intervention/Recommendation Comments [facility]. [facility] ALEK CCHO diet as ordered. consider adding renal diet if K continue elevated. 2. Add Glucerna TID for extra kcal and protein d/t poor appetite. 3. Monitor PO intake, wt, labs and skin integrity 4. F/U as high risk in 2-3 days Expected Outcomes/Goals Expected Outcomes/Goals 1. PO intake improved to meet at least 75% of nutritional needs. 2. Wt stability, skin to remain intact, labs to approach WNL.
[2018-12-11 14:10] LABS: BF MESOTELIAL CELLS MANY; BF MONOCYTES 11 %
--- NOTE | 2018-12-11 14:25 | Pathology Report ---
[id number] Collection Date: 12/10/2018 Attending Physician: Dr. Timoteo Christian Specimen Description: Left pleural fluid for cytology. Gross Description: Received in a large glass container is approximately 1000 mL of dark yellow watery fluid. A sales and merchandising representative portion is submitted for Cytology processing. Microscopic Description: Examination of two cytospins and one cell block shows large numbers of inflammatory cells consisting of mostly lymphocytes, admixed with reactive mesothelial cells and blood. There is no evidence for nuclear enlargement nor atypia. Diagnosis: No cytologic evidence for malignancy, left pleural fluid cytology. JOB# [id number] [facility]
--- NOTE | 2018-12-11 14:33 | Diagnostic Imaging Report ---
Radionuclide liver spleen sulfur colloid scan HISTORY: Cirrhosis 5.6 mCi technetium sulfur colloid used in the exam. The liver exhibits a normal size. Homogeneous normal uptake. No focal defects are seen. The spleen appears normal. Minimal extrahepatic activity identified within the bone marrow. IMPRESSION: 1. Essentially negative examination.
--- NOTE | 2018-12-11 18:01 | Progress Notes ---
DATE: 12/10/2018 PULMONARY PROGRESS NOTE SUBJECTIVE: The patient appears to be doing okay. Did have a thoracentesis earlier with 1.3 liters removed. No complications as mentioned above. PHYSICAL EXAMINATION: VITAL SIGNS: Temperature 98.5, pulse 66, respirations 18, blood pressure 141/30, saturations 100% on 2 of liters oxygen. CHEST: Better air entry on left side. HEART: Regular rate and rhythm. ABDOMEN: Soft. EXTREMITIES: No edema. LABORATORY DATA: WBC 7.9, hemoglobin 10.3, hematocrit 30.9, platelets 111. Sodium 145, potassium 5.1, BUN 29, creatinine 1.0. The glucose in fluids is , protein less than 3. IMPRESSION: 1. Liver cirrhosis. 2. Pleural effusion. 3. Congestive heart failure. PLAN: Continue diuresis. Follow up chest x-ray and supportive care. Follow up on the fluid numbers, might consider right-sided thoracentesis if not improved later. JOB# [id number]
[2018-12-11] MEDS ORDERED: Levofloxacin 250mg/50mL 250 MG/50 ML BAG IV SCH (22:00)
--- NOTE | 2018-12-12 16:32 | Progress Notes ---
DATE: 12/11/2018 SUBJECTIVE: The patient appears to be doing okay. No distress. OBJECTIVE: VITAL SIGNS: Temperature 98.0, pulse 70, respiration 18, blood pressure 160/70, and saturation 97% on room air. HEENT: Atraumatic, normocephalic. CHEST: Good breath sounds, better air exchange. HEART: Regular rate and rhythm. ABDOMEN: Soft. EXTREMITIES: No edema. LABORATORY DATA: WBC 6.1, hemoglobin 10.1, and platelets 103. Ammonia less than 0. Urine culture Enterobacter. ASSESSMENT: 1. Urinary tract infection. 2. Pleural effusion. 3. Liver cirrhosis. 4. Weakness. PLAN: 1. Continue nebulizer. 2. Diuresis. 3. Supportive care and antibiotics. JOB# [id number]
== END 2018-12-11 21:45 | DRG 441 ==
LOC: ER 20:11 → TELE 22:25
PROVIDERS: ADMIT Internal Medicine Infectious Disease; ATTEND Internal Medicine Infectious Disease
PROC: 30233N1 Transfusion of Nonautologous Red Blood Cells into Peripheral Vein, Percutaneous Approach (ICD-10-PCS; 2018-12-08)
PROC: 0W9B3ZZ Drainage of Left Pleural Cavity, Percutaneous Approach (ICD-10-PCS; principal; 2018-12-10)
DX: K72.90 Hepatic failure, unspecified without coma (principal); G93.41 Metabolic encephalopathy; J18.9 Pneumonia, unspecified organism; I50.31 Acute diastolic (congestive) heart failure; J90 Pleural effusion, not elsewhere classified; N39.0 Urinary tract infection, site not specified; I13.0 Hypertensive heart and chronic kidney disease with heart failure and stage 1 through stage 4 chronic kidney disease, or unspecified chronic kidney disease; J44.0 Chronic obstructive pulmonary disease with (acute) lower respiratory infection; K70.31 Alcoholic cirrhosis of liver with ascites; D69.6 Thrombocytopenia, unspecified; D50.9 Iron deficiency anemia, unspecified; H40.9 Unspecified glaucoma; E87.5 Hyperkalemia; H54.61 Unqualified visual loss, right eye, normal vision left eye; E86.0 Dehydration; J32.9 Chronic sinusitis, unspecified; B95.61 Methicillin susceptible Staphylococcus aureus infection as the cause of diseases classified elsewhere; E11.22 Type 2 diabetes mellitus with diabetic chronic kidney disease; N18.2 Chronic kidney disease, stage 2 (mild); Z79.4 Long term (current) use of insulin
CPT/HCPCS: 36415-UA; 71045-TC; 76700-TC; 76942-TC; 78215-TC; 80053-TC; 81001-TC; 82105-90; 82140-TC; 82270-TC; 82607-90; 82668-90; 82728-90; 82746-90; 82945-TC; 82948-90; 83540-90; 83550-90; 83615-TC; 83721-TC; 83880-TC; 84157-TC; 84484-TC; 85007-TC; 85025-TC; 85044-TC; 85610-TC; 86850-TC; 86900-TC; 86901-TC; 86922-TC; 87070-90; 87075-90; 87086-90; 87205-90; 87804-TC; 89051-TC; 93005; 94760; 96374; A9500; J0696; J1815; J1956; J3370; J7030; J7040; J7799; P9016; Q0162; Z7610